=== PATIENT | female | born 1955 | race Caucasian/White ===

== ENCOUNTER 2016-02-17 23:08 | Emergency (ER) | payer BC, MEDICARE ==
[2006-11-29 01:49] VITALS: BP 163/71
[~2016-02-17] VITALS: Ht 162.6 cm; Wt 118.2 kg
[~2016-02-17 23:08] MED LIST: ABILIFY30 MG PO; ALDACTONE 25MG25 M1 PO; ALDACTONE 25MG25 MG PO; AMITRIPTYLINE H10 M1 PO; AMITRIPTYLINE H75 M1 PO; AMOXICILLIN 50500 MG PO; AMOXICILLIN 8751 TAB PO; AMOXICILLIN875 MG PO; ANTIVERT; ANTIVERT 25MG25 MG PO; ASPIRIN 81M81 MG/TA2 PO; ATARAX 10MG10 MG/TAB PO; ATARAX 25MG25 MG/TAB PO; ATARAX50 MG PO; AXERT; BELSOMRA20 MG PO; BENADRYL25 M2 PO; BIRTH CONTROL; BUSPAR DIVIDOSE15 MG PO; CALAN SR240 MG PO; CARVEDILOL; CEPHALEXIN250 M1 PO; CEPHALEXIN500 M1 PO; CIPRO 500MG TA500 MG PO; CLEOCIN HC150 MG/CAP; CLEOCIN HCL300 MG PO; CLIMARA0.05 MG/24 TD; COGENTIN .0.5 MG/TAB PO; COREG 25MG25 MG/TAB PO; CYMBALTA; CYMBALTA30 MG PO; CYMBALTA60 M1 PO; DAZIDOX10 MG PO; DEPAKOTE 125MG125 M1 PO; DESYREL 100MG100 MG PO; DICLOFENAC; DIFLUCAN; DIFLUCAN150 MG PO; DILAUDID 2MG TAB2 MG; DRAMAMINE50 M1 PO; ELAVIL50 MG PO; ESTRACE; ESTRACE 1MG1 MG/TAB PO; ESTRACE0.1 MG/GM VG; FENTANYL 100MCG TOP; FENTANYL 25 MCG TOP; FENTANYL 50MCG TD; FENTANYL 50MCG TOP; FETZIMA20 PO; FLEXERIL; FLEXERIL10 MG PO; FLUOXETINE; FROVA PO; FROVA2.5 MG PO; FROVATRIPTAN; GEODON 40MG40 MG PO; GRALISE600 MG PO; GYNE-LOTRIMIN1% VG; HCTZ 25MG TAB25 MG PO; HCTZ 25MG25 MG PO; HORIZANT300 MG PO; HYDROXYZINE HYD25 MG PO; IMITREX100 MG PO; ISOPTIN PO; KETAMINE CREAM TOP; KLOR-CON 1010 MEQ PO; LAMICTAL; LAMICTAL 100MG100 MG PO; LAMICTAL 25MG T25 MG PO; LAMISIL1% TOP; LAMOTRIGINE5 MG PO; LASIX; LASIX 20MG TABL20 MG PO; LASIX 40MG TABL40 MG PO; LATUDA20 MG PO; LATUDA40 MG PO; LATUDA60 MG PO; LEVAQUIN 5500 MG/TA1 PO; LEXAPRO 10MG10 MG PO; LEXAPRO20 MG; LIORESAL 1010 MG/TAB PO; LISINOPRIL2.5 MG PO; LITHIUM 30300 MG/CAP PO; LITHOBID 3300 MG/TAB PO; LORTAB 7.5/5001 TAB PO; LUNESTA2 MG PO; MACROBID 1100 MG/CAP; MACROBID 1100 MG/CAP PO; MACROBID100 MG PO; METHYLPHENIDATE; MICRO-K 10 EXT10 MEQ PO; MICRO-K10 MEQ PO; MYCOSTATIN100000 U/2 TP; NAPROXEN 3375 MG/TAB PO; NASACORT AQ N16.5 GM NS; NEURONTIN100 MG/CAP; NORCO 325 MG-51 TAB; NORCO 325 MG-51 TAB PO; NUVIGIL150 MG PO; NUVIGIL50 MG PO; OXYCONTIN40 MG PO; PHENERGAN 25 TA25 MG PO; PHENERGAN25 MG RC; PREDNISONE20 MG PO; PREMARIN 0.60.625 M1 PO; PRILOTC PO; PROAIR HFA0.09 MG/AC IH; PROZAC 20MG20 MG PO; PYRIDIUM 100MG100 MG PO; REFRESH DRY EYE15 ML OU; RESTORIL15 MG PO; RISPERDAL2 MG PO; RITALIN 20M20 MG/TAB PO; ROXICODONE15 MG PO; SEROQUEL XR150 MG PO; SINEQUAN 1010 MG/CAP PO; SKELAXIN 4400 MG/TAB PO; SKELAXIN 800MG800 MG; SKELAXIN 800MG800 MG PO; TEMAZEPAM; TESSALON PERLE200 MG PO; TRAMADOL; TREXAMET; ULTRAM 50MG TAB50 MG DT; ULTRAM 50MG TAB50 MG PO; ULTRAM50 MG PO; UNABLE; VANCOMYCIN 11 G/VIA1 IV; VANCOMYCIN 11 G/VIAL IV; VERAPAMIL; VESICARE 5MG5 MG PO; VICODIN 5/5001 UDTAB PO; VIVARIN200 MG PO; VYVANSE; VYVANSE70 MG PO; WELLBUTRIN XL150 MG PO; ZESTRIL 5MG5 MG PO; ZESTRIL10 MG PO; ZIPRASIDONE; ZITHROMAX 250M250 MG PO; ZITHROMAX TRI-500 MG PO; ZITHROMAX Z PA250 MG PO; ZOFRAN 4MG T4 MG/TAB PO; ZOLOFT 100MG100 MG PO; ZOLPIDEM5 MG PO; ZOVIRAX 200MG200 MG; ZOVIRAX51; ZOVIRAX51 TP; ZYRTEC 10MG10 MG PO; [UNRECOGNIZED DRUG - OTHER]; [UNRECOGNIZED DRUG - OTHER] PO; vyvanse
[2016-02-17 23:29] VITALS: TEMP 98.3
[2016-02-18 00:48] VITALS: BP 152/92; PULSE 71
== END 2016-02-18 01:05 | disposition home or self-care (01) ==
LOC: COL.ER 23:08
DX: G43.909 Migraine, unspecified, not intractable, without status migrainosus (principal)
CPT/HCPCS: J1100; J1200; J1885; J2405; J2550; J7030

== ENCOUNTER → 2016-03-02 | Outpatient (CLI) | payer BC, MEDICARE ==
[~2016-03-02] MED LIST changes: +RESTORIL 1515 MG/CAP PO
== END ==
LOC: BHSO 10:35
DX: F31.81 Bipolar II disorder (principal)

== ENCOUNTER 2016-03-03 20:13 | Emergency (ER) | payer BC, MEDICARE ==
[2006-11-29 01:49] VITALS: BP 163/71
[~2016-03-03] VITALS: Ht 162.6 cm; Wt 109.1 kg
[~2016-03-03 20:13] MED LIST changes: -RESTORIL 1515 MG/CAP PO
[2016-03-03 20:17] VITALS: BP 143/75; TEMP 98.2
[2016-03-03 22:52] VITALS: PULSE 70
== END 2016-03-03 22:54 | disposition home or self-care (01) ==
LOC: COL.ER 20:13
DX: R51 Headache (principal); I10 Essential (primary) hypertension; Z86.73 Personal history of transient ischemic attack (TIA), and cerebral infarction without residual deficits
CPT/HCPCS: J1110; J1200; J1885; J2405; J7030

== ENCOUNTER 2016-03-08 19:44 | Emergency (ER) | payer BC, MEDICARE ==
[2006-11-29 01:49] VITALS: BP 163/71
[~2016-03-08] VITALS: Ht 162.6 cm; Wt 100.0 kg
[2016-03-08 20:02] VITALS: TEMP 98.4
[2016-03-08 22:52] VITALS: BP 143/84; PULSE 73
== END 2016-03-08 22:58 | disposition home or self-care (01) ==
LOC: COL.ER 19:44
DX: G43.909 Migraine, unspecified, not intractable, without status migrainosus (principal)
CPT/HCPCS: J1100; J1885; J2060; J2405; J2550

== ENCOUNTER 2016-03-16 06:56 | Emergency (ER) | payer BC, MEDICARE ==
[2006-11-29 01:49] VITALS: BP 163/71
[~2016-03-16] VITALS: Ht 162.6 cm; Wt 118.2 kg
[2016-03-16 08:19] VITALS: BP 114/69; PULSE 68; TEMP 97.4
== END 2016-03-16 08:17 | disposition home or self-care (01) ==
LOC: COL.ER 06:56
DX: G43.909 Migraine, unspecified, not intractable, without status migrainosus (principal); I10 Essential (primary) hypertension
CPT/HCPCS: J1170; J1200

== ENCOUNTER 2016-04-16 05:26 | Emergency (ER) | payer BC, MEDICARE ==
[2006-11-29 01:49] VITALS: BP 163/71
[~2016-04-16] VITALS: Ht 162.6 cm; Wt 109.1 kg
[2016-04-16 05:29] VITALS: BP 122/54; TEMP 98.5
[2016-04-16] MEDS ORDERED: ZITHROMAX 250M250 MG PO (05:58)
[2016-04-16 06:20] VITALS: PULSE 75
== END 2016-04-16 06:21 | disposition home or self-care (01) ==
LOC: COL.ER 05:26
DX: G43.909 Migraine, unspecified, not intractable, without status migrainosus (principal); J32.9 Chronic sinusitis, unspecified; I10 Essential (primary) hypertension; J44.9 Chronic obstructive pulmonary disease, unspecified; J45.909 Unspecified asthma, uncomplicated
CPT/HCPCS: J1170; J1200; J2405

== ENCOUNTER → 2016-04-27 | Outpatient (CLI) | payer BC, MEDICARE ==
[~2016-04-27] MED LIST changes: +RESTORIL 1515 MG/CAP PO
== END ==
LOC: BHSO 14:36
DX: F31.81 Bipolar II disorder (principal)

== ENCOUNTER 2016-05-06 21:32 | Emergency (ER) | payer BC, MEDICARE ==
[2006-11-29 01:49] VITALS: BP 163/71
[~2016-05-06] VITALS: Ht 162.6 cm; Wt 122.7 kg
[~2016-05-06 21:32] MED LIST changes: -RESTORIL 1515 MG/CAP PO
[2016-05-06 21:41] VITALS: TEMP 98.1
[2016-05-06] MEDS ORDERED: RESTORIL 1515 MG/CAP PO (21:45)
[2016-05-06 23:35] VITALS: BP 184/95; PULSE 73
== END 2016-05-06 23:45 | disposition home or self-care (01) ==
LOC: COL.ER 21:32
DX: R51 Headache (principal); I10 Essential (primary) hypertension; Z86.73 Personal history of transient ischemic attack (TIA), and cerebral infarction without residual deficits
CPT/HCPCS: J1100; J1110; J1200; J1885; J2405; J7030

== ENCOUNTER 2016-05-19 20:56 | Emergency (ER) | payer BC, MEDICARE ==
[2006-11-29 01:49] VITALS: BP 163/71
[~2016-05-19] VITALS: Ht 162.6 cm; Wt 118.2 kg
[~2016-05-19 20:56] MED LIST changes: +RESTORIL 1515 MG/CAP PO
[2016-05-19 20:59] VITALS: TEMP 97.8
[2016-05-19 21:48] VITALS: BP 151/77; PULSE 88
== END 2016-05-19 21:51 | disposition home or self-care (01) ==
LOC: COL.ER 20:56
DX: G43.909 Migraine, unspecified, not intractable, without status migrainosus (principal); I10 Essential (primary) hypertension; Z86.73 Personal history of transient ischemic attack (TIA), and cerebral infarction without residual deficits
CPT/HCPCS: J1170; J1200; J2405

== ENCOUNTER 2016-06-05 18:06 | Emergency (ER) | payer BC, MEDICARE ==
[2006-11-29 01:49] VITALS: BP 163/71
[~2016-06-05] VITALS: Ht 162.6 cm; Wt 118.2 kg
[2016-06-05 18:31] VITALS: TEMP 98.8
[2016-06-05 19:40] VITALS: BP 171/89; PULSE 71
== END 2016-06-05 19:40 | disposition home or self-care (01) ==
LOC: COL.ER 18:06
DX: G43.909 Migraine, unspecified, not intractable, without status migrainosus (principal)
CPT/HCPCS: J1170; J1200; J2405

== ENCOUNTER → 2016-06-29 | Outpatient (CLI) | payer BC, MEDICARE | LOC: BHSO 14:08 | DX: F31.81 Bipolar II disorder (principal) ==

== ENCOUNTER 2016-07-11 01:09 | Emergency (ER) | payer BC, MEDICARE ==
[2006-11-29 01:49] VITALS: BP 163/71
[~2016-07-11] VITALS: Ht 162.6 cm; Wt 122.7 kg
[2016-07-11 01:17] VITALS: TEMP 98
[2016-07-11 02:59] VITALS: BP 145/89; PULSE 94
== END 2016-07-11 03:01 | disposition home or self-care (01) ==
LOC: COL.ER 01:09
DX: G43.909 Migraine, unspecified, not intractable, without status migrainosus (principal); K21.9 Gastro-esophageal reflux disease without esophagitis; J45.909 Unspecified asthma, uncomplicated; I10 Essential (primary) hypertension; F31.9 Bipolar disorder, unspecified; Z90.49 Acquired absence of other specified parts of digestive tract; Z90.710 Acquired absence of both cervix and uterus; Z98.51 Tubal ligation status; Z98.890 Other specified postprocedural states; Z85.41 Personal history of malignant neoplasm of cervix uteri
CPT/HCPCS: J1170; J1200; J2405

== ENCOUNTER 2016-08-11 12:47 | Emergency (ER) | payer BC, MEDICARE ==
[2006-11-29 01:49] VITALS: BP 163/71
[~2016-08-11] VITALS: Ht 162.6 cm; Wt 118.2 kg
[2016-08-11 12:50] VITALS: BP 131/87; PULSE 84; TEMP 99
== END 2016-08-11 14:05 | disposition home or self-care (01) ==
LOC: COL.ER 12:47
DX: G43.909 Migraine, unspecified, not intractable, without status migrainosus (principal); I11.0 Hypertensive heart disease with heart failure; I50.9 Heart failure, unspecified; F32.9 Major depressive disorder, single episode, unspecified; J45.909 Unspecified asthma, uncomplicated; F31.9 Bipolar disorder, unspecified; K21.9 Gastro-esophageal reflux disease without esophagitis; M19.90 Unspecified osteoarthritis, unspecified site; Z87.19 Personal history of other diseases of the digestive system; Z87.39 Personal history of other diseases of the musculoskeletal system and connective tissue; Z85.41 Personal history of malignant neoplasm of cervix uteri; Z86.73 Personal history of transient ischemic attack (TIA), and cerebral infarction without residual deficits; Z98.51 Tubal ligation status; Z90.710 Acquired absence of both cervix and uterus; Z90.49 Acquired absence of other specified parts of digestive tract; Z98.890 Other specified postprocedural states
CPT/HCPCS: J1170; J1200; J2405

== ENCOUNTER 2016-09-22 19:15 | Emergency (ER) | payer BC, MEDICARE ==
[2006-11-29 01:49] VITALS: BP 163/71
[~2016-09-22] VITALS: Ht 162.6 cm; Wt 119.1 kg
[2016-09-22 19:21] VITALS: BP 179/104; PULSE 102; TEMP 99.2
== END 2016-09-22 21:56 | disposition home or self-care (01) ==
LOC: COL.ER 19:15
DX: G43.909 Migraine, unspecified, not intractable, without status migrainosus (principal); E66.01 Morbid (severe) obesity due to excess calories; Z68.42 Body mass index [BMI] 45.0-49.9, adult
CPT/HCPCS: J1170; J1200; J2405

== ENCOUNTER → 2016-09-22 | Outpatient (CLI) | payer BC, MEDICARE | LOC: BHSO 15:08 | DX: F31.81 Bipolar II disorder (principal) ==

== ENCOUNTER 2016-10-23 20:37 | Emergency (ER) | payer BC, MEDICARE ==
[2006-11-29 01:49] VITALS: BP 163/71
[~2016-10-23] VITALS: Ht 162.6 cm; Wt 116.8 kg
[2016-10-23 20:39] VITALS: BP 195/70; TEMP 99.6
[2016-10-23] MEDS ORDERED: DESYREL 100MG100 MG PO (22:38)
[2016-10-23 23:02] VITALS: PULSE 84
== END 2016-10-23 23:03 | disposition home or self-care (01) ==
LOC: COL.ER 20:37
DX: G43.909 Migraine, unspecified, not intractable, without status migrainosus (principal); I11.0 Hypertensive heart disease with heart failure; I50.9 Heart failure, unspecified; Z86.73 Personal history of transient ischemic attack (TIA), and cerebral infarction without residual deficits; F31.9 Bipolar disorder, unspecified; J45.909 Unspecified asthma, uncomplicated; K31.84 Gastroparesis; G89.29 Other chronic pain; M54.9 Dorsalgia, unspecified
CPT/HCPCS: J1170; J1200; J2405

== ENCOUNTER 2016-11-22 18:06 | Emergency (ER) | payer BC, MEDICARE ==
[2006-11-29 01:49] VITALS: BP 163/71
[~2016-11-22] VITALS: Ht 162.6 cm; Wt 111.8 kg
[2016-11-22 18:14] VITALS: BP 171/79; TEMP 98
[2016-11-22 19:18] VITALS: PULSE 77
== END 2016-11-22 19:20 | disposition home or self-care (01) ==
LOC: COL.ER 18:06
DX: G43.909 Migraine, unspecified, not intractable, without status migrainosus (principal); I10 Essential (primary) hypertension; J45.909 Unspecified asthma, uncomplicated; F31.9 Bipolar disorder, unspecified; M54.9 Dorsalgia, unspecified; G89.29 Other chronic pain; Z86.73 Personal history of transient ischemic attack (TIA), and cerebral infarction without residual deficits
CPT/HCPCS: J1170; J1200; J2405

== ENCOUNTER 2016-12-01 18:08 | Emergency (ER) | payer BC, MEDICARE ==
[2006-11-29 01:49] VITALS: BP 163/71
[~2016-12-01] VITALS: Ht 162.6 cm; Wt 106.8 kg
[2016-12-01 18:10] VITALS: TEMP 99.1
[2016-12-01 19:13] VITALS: BP 175/106; PULSE 98
== END 2016-12-01 19:26 | disposition home or self-care (01) ==
LOC: COL.ER 18:08
DX: G43.909 Migraine, unspecified, not intractable, without status migrainosus (principal)
CPT/HCPCS: J1200; J1630; J1885

== ENCOUNTER 2016-12-03 19:08 | Emergency (ER) | payer BC, MEDICARE ==
[2006-11-29 01:49] VITALS: BP 163/71
[~2016-12-03] VITALS: Ht 162.6 cm; Wt 109.1 kg
[2016-12-03 19:11] VITALS: BP 139/90; PULSE 102; TEMP 98
== END 2016-12-03 21:35 | disposition home or self-care (01) ==
LOC: COL.ER 19:08
DX: K59.00 Constipation, unspecified (principal); G89.29 Other chronic pain; Z90.49 Acquired absence of other specified parts of digestive tract

== ENCOUNTER 2016-12-05 16:48 | Inpatient (IN) | payer BC, MEDICARE ==
[~2016-12-05] VITALS: Ht 162.6 cm; Wt 112.4 kg
[2016-12-05 17:58] LABS: BASO # 0.1 (0.0-0.2); BASO % 0.6 % (0.0-2.0); EOS # 0.2 (0.0-0.7); EOS % 2.5 % (0-4.0); GRAN # 6.8 (1.4-6.5); GRAN % 75.3 % (42.2-75.2); HEMATOCRIT 46.7 % (37.0-47.0); HEMOGLOBIN 15.9 g/dl (12.5-16.0); LYMPH # 1.3 (1.2-3.4); LYMPH % 14.8 % (20.0-51.0); MEAN CELL VOLUME 84 fl (80.0-100.0); MEAN CORPUSCULAR HEMOGLOBIN 29 pg (27.0-31.0); MEAN CORPUSCULAR HGB CONC 34 g/dl (33.0-37.0); MEAN PLATELET VOLUME 8.8 fl (7.4-10.4); MONO # 0.6 (0.1-0.6); MONO % 6.6 % (1.7-9.3); PLATELET COUNT 301 K/mm3 (130-400); RED BLOOD COUNT 5.56 M/mm3 (4.10-5.30); WHITE BLOOD COUNT 9.1 K/mm3 (4.8-10.8)
[2016-12-05 18:15] LABS: ADJUSTED CALCIUM 10.3 mg/dL (8.4-10.2); ALANINE AMINOTRANSFERASE 29 U/L (9-52); ALBUMIN 4.5 gm/dL (3.5-5.0); ALKALINE PHOSPHATASE 119 U/L (50-136); BILIRUBIN,TOTAL 1.2 mg/dL (0.0-1.0); BLOOD UREA NITROGEN 10 mg/dL (7-17); CALCIUM 10.7 mg/dL (8.4-10.2); CARBON DIOXIDE 23 mmol/L (22-30); CREATININE, serum 0.66 mg/dL (0.52-1.25); GLUCOSE 95 mg/dL (74-106); LIPASE 28 U/L (23-300); POTASSIUM 3.2 mmol/L (3.4-5.0); SODIUM 138 mmol/L (137-145); TOTAL PROTEIN 7.8 gm/dL (6.4-8.2)
[2016-12-05 18:17] LABS: CHLORIDE 101 mmol/L (98-107)
[2016-12-05 19:08] LABS: COLLECTION METHOD CLEAN CATCH
[2016-12-05 19:23] LABS: MUCOUS Present /lpf; PH 7 (5-8); URINE APPEARANCE Clear; URINE BACTERIA Rare /hpf; URINE BILIRUBIN Negative (NEGATIVE); URINE BLOOD 1+ (NEGATIVE); URINE GLUCOSE Negative (NEGATIVE); URINE KETONE 2+ (NEGATIVE); URINE LEUKOCYTE ESTERASE Negative (NEGATIVE); URINE PROTEIN(semi-quant) Negative (NEGATIVE); URINE RBC 0-2 /hpf; URINE WBC 0-2 /hpf
[2016-12-05 19:24] LABS: URINE COLOR Yellow
[2016-12-05 20:46] LABS: MAGNESIUM 2.5 mg/dL (1.6-2.3)
[2016-12-05] MEDS ORDERED: EFFEXOR-XR150 MG PO (21:02)
[2016-12-05] MEDS ORDERED: COGENTIN 1MG1 MG/TAB PO (21:07)
[2016-12-05] MEDS ORDERED: AMITIZA24 MCG PO (21:08)
[2016-12-05] MEDS ORDERED: LAMICTAL200 MG PO (21:09)
[2016-12-05] MEDS ORDERED: ATARAX 10MG10 MG/TAB PO (21:10)
[2016-12-05] MEDS ORDERED: AXERT6.25 MG PO (21:12)
[2016-12-05] MEDS ORDERED: DETROL LA 2 MG2 MG PO (21:14)
[2016-12-05] MEDS ORDERED: COGENTIN .0.5 MG/TAB PO (21:22)
[2016-12-05 22:07] VITALS: BP 154/79; PULSE 94; TEMP 98.1
[2016-12-05 22:13] LABS: B-TYPE NATRIURETIC PEPTIDE 124 pg/mL (0-125)
[2016-12-06] VITALS (7 sets, daily range): BP systolic 115–155; BP diastolic 54–78; PULSE 64–83; TEMP 97.3–98.7
[2016-12-06 05:21] LABS: MUCOUS Present /lpf; PH 6 (5-8); URINE APPEARANCE Clear; URINE BACTERIA None Seen /hpf; URINE BILIRUBIN Negative (NEGATIVE); URINE BLOOD Negative (NEGATIVE); URINE COLOR Amber; URINE GLUCOSE Negative (NEGATIVE); URINE KETONE 2+ (NEGATIVE); URINE LEUKOCYTE ESTERASE Negative (NEGATIVE); URINE PROTEIN(semi-quant) Negative (NEGATIVE); URINE RBC 0-2 /hpf; URINE UROBILINOGEN >=4.0 mg/dL (NEGATIVE); URINE WBC 0-2 /hpf
[2016-12-06 07:24] LABS: BASO % 0.8 % (0.0-2.0); EOS # 0.3 (0.0-0.7); EOS % 5.3 % (0-4.0); GRAN # 3.1 (1.4-6.5); GRAN % 59.6 % (42.2-75.2); LYMPH # 1.4 (1.2-3.4); LYMPH % 25.7 % (20.0-51.0); MEAN CELL VOLUME 86 fl (80.0-100.0); MEAN CORPUSCULAR HEMOGLOBIN 28 pg (27.0-31.0); MEAN CORPUSCULAR HGB CONC 33 g/dl (33.0-37.0); MEAN PLATELET VOLUME 9.2 fl (7.4-10.4); MONO # 0.4 (0.1-0.6); MONO % 8.2 % (1.7-9.3); PLATELET COUNT 223 K/mm3 (130-400); WHITE BLOOD COUNT 5.3 K/mm3 (4.8-10.8)
[2016-12-06 07:32] LABS: HEMOGLOBIN 13.9 g/dl (12.5-16.0)
[2016-12-06 07:40] LABS: CALCIUM 9.4 mg/dL (8.4-10.2); CREATININE, serum 0.56 mg/dL (0.52-1.25); POTASSIUM 3.3 mmol/L (3.4-5.0)
[2016-12-06 07:47] LABS: COLLECTION METHOD CLEAN CATCH
[2016-12-07] VITALS (8 sets, daily range): BP systolic 120–144; BP diastolic 47–70; PULSE 65–77; TEMP 97.5–98.5
[2016-12-08 04:40] VITALS: BP 132/53; PULSE 68; TEMP 97.4
[2016-12-08 06:47] LABS: BASO # 0.1 (0.0-0.2); BASO % 1.2 % (0.0-2.0); EOS # 0.2 (0.0-0.7); EOS % 5.4 % (0-4.0); GRAN % 48.5 % (42.2-75.2); HEMATOCRIT 39.6 % (37.0-47.0); HEMOGLOBIN 12.9 g/dl (12.5-16.0); LYMPH # 1.5 (1.2-3.4); LYMPH % 36.1 % (20.0-51.0); MEAN CELL VOLUME 88 fl (80.0-100.0); MEAN CORPUSCULAR HEMOGLOBIN 29 pg (27.0-31.0); MEAN CORPUSCULAR HGB CONC 33 g/dl (33.0-37.0); MEAN PLATELET VOLUME 9.1 fl (7.4-10.4); MONO # 0.3 (0.1-0.6); MONO % 8.3 % (1.7-9.3); PLATELET COUNT 217 K/mm3 (130-400); RED BLOOD COUNT 4.51 M/mm3 (4.10-5.30); WHITE BLOOD COUNT 4.1 K/mm3 (4.8-10.8)
[2016-12-08 07:06] LABS: CALCIUM 8.7 mg/dL (8.4-10.2); CREATININE, serum 0.55 mg/dL (0.52-1.25); POTASSIUM 3.6 mmol/L (3.4-5.0)
[2016-12-08 08:05] VITALS: BP 144/65; PULSE 75; TEMP 97.2
[2016-12-08] MEDS ORDERED: FLAGYL500 MG PO (08:53)
[2016-12-08] MEDS ORDERED: CIPRO 500MG TA500 MG PO (08:54)
== END 2016-12-08 16:15 | disposition home or self-care (01) | DRG 392 ==
LOC: COL.ER 16:48 → MEDICAL 20:20
PROVIDERS: Emergency Medicine; Internal Medicine Gastroenterology; Nurse Practitioner Family; Physician Assistant
PROC: 0DJD8ZZ Inspection of Lower Intestinal Tract, Via Natural or Artificial Opening Endoscopic (ICD-10-PCS; principal; 2016-12-07 15:30)
DX: K57.32 Diverticulitis of large intestine without perforation or abscess without bleeding (principal); N39.0 Urinary tract infection, site not specified; I10 Essential (primary) hypertension; E87.6 Hypokalemia; E83.52 Hypercalcemia; F31.9 Bipolar disorder, unspecified; J45.909 Unspecified asthma, uncomplicated; G89.29 Other chronic pain; Z85.41 Personal history of malignant neoplasm of cervix uteri; Z86.73 Personal history of transient ischemic attack (TIA), and cerebral infarction without residual deficits
CPT/HCPCS: 99223-AI; 99233-AI; 99239; J0360; J0500; J0744; J1885; J2270; J2405; J3480; J7030; Q9967

== ENCOUNTER 2016-12-25 17:13 | Emergency (ER) | payer BC, MEDICARE ==
[2006-11-29 01:49] VITALS: BP 163/71
[~2016-12-25] VITALS: Ht 162.6 cm; Wt 112.3 kg
[~2016-12-25 17:13] MED LIST changes: +AMITIZA24 MCG PO; +AXERT6.25 MG PO; +COGENTIN 1MG1 MG/TAB PO; +DETROL LA 2 MG2 MG PO; +EFFEXOR-XR150 MG PO; +FLAGYL500 MG PO; +LAMICTAL200 MG PO
[2016-12-25 17:16] VITALS: TEMP 98.1
[2016-12-25 17:48] LABS: COLLECTION METHOD CLEAN CATCH
[2016-12-25 17:55] LABS: MUCOUS Present /lpf; PH 6 (5-8); URINE APPEARANCE Clear; URINE BACTERIA None Seen /hpf; URINE BILIRUBIN Negative (NEGATIVE); URINE BLOOD Negative (NEGATIVE); URINE COLOR Amber; URINE GLUCOSE Negative (NEGATIVE); URINE KETONE Negative (NEGATIVE); URINE LEUKOCYTE ESTERASE Negative (NEGATIVE); URINE PROTEIN(semi-quant) Negative (NEGATIVE); URINE UROBILINOGEN >=4.0 mg/dL (NEGATIVE)
[2016-12-25 18:45] VITALS: BP 142/79; PULSE 79
== END 2016-12-25 18:45 | disposition home or self-care (01) ==
LOC: COL.ER 17:13
PROVIDERS: Nurse Practitioner
DX: G43.909 Migraine, unspecified, not intractable, without status migrainosus (principal); I11.0 Hypertensive heart disease with heart failure; I50.9 Heart failure, unspecified; J45.909 Unspecified asthma, uncomplicated; F31.9 Bipolar disorder, unspecified; K31.84 Gastroparesis; Z86.73 Personal history of transient ischemic attack (TIA), and cerebral infarction without residual deficits
CPT/HCPCS: J1170; J1200; J2405

== ENCOUNTER 2017-01-25 19:00 | Emergency (ER) | payer BC, MEDICARE ==
[2006-11-29 01:49] VITALS: BP 163/71
[~2017-01-25] VITALS: Ht 162.6 cm; Wt 109.1 kg
[2017-01-25 19:10] VITALS: BP 194/88; PULSE 91; TEMP 98.5
== END 2017-01-25 20:08 | disposition home or self-care (01) ==
LOC: COL.ER 19:00
DX: G43.909 Migraine, unspecified, not intractable, without status migrainosus (principal); I11.0 Hypertensive heart disease with heart failure; I50.9 Heart failure, unspecified; J45.909 Unspecified asthma, uncomplicated; F31.9 Bipolar disorder, unspecified; G89.29 Other chronic pain; M54.9 Dorsalgia, unspecified; Z86.73 Personal history of transient ischemic attack (TIA), and cerebral infarction without residual deficits
CPT/HCPCS: J1170; J1200; J2405

== ENCOUNTER 2017-02-25 19:36 | Emergency (ER) | payer BC, MEDICARE ==
[2006-11-29 01:49] VITALS: BP 163/71
[~2017-02-25] VITALS: Wt 109.1 kg
[2017-02-25 19:43] VITALS: TEMP 98.8
[2017-02-25 20:44] VITALS: BP 170/77; PULSE 66
== END 2017-02-25 20:50 | disposition home or self-care (01) ==
LOC: COL.ER 19:36
DX: G43.909 Migraine, unspecified, not intractable, without status migrainosus (principal); I10 Essential (primary) hypertension
CPT/HCPCS: J1170; J1200; J2405

== ENCOUNTER 2017-03-27 13:58 | Emergency (ER) | payer BC, MEDICARE ==
[2006-11-29 01:49] VITALS: BP 163/71
[~2017-03-27] VITALS: Ht 162.6 cm; Wt 101.4 kg
[2017-03-27 14:34] VITALS: BP 191/103; TEMP 98.7
[2017-03-27] MEDS ORDERED: URIBEL1 CAP PO (15:06)
[2017-03-27] MEDS ORDERED: NORCO 325 MG-7.1 TAB PO (15:07)
[2017-03-27 15:32] VITALS: PULSE 93
== END 2017-03-27 15:33 | disposition home or self-care (01) ==
LOC: COL.ER 13:58
DX: G43.909 Migraine, unspecified, not intractable, without status migrainosus (principal); I10 Essential (primary) hypertension; J45.909 Unspecified asthma, uncomplicated; F31.9 Bipolar disorder, unspecified; Z86.73 Personal history of transient ischemic attack (TIA), and cerebral infarction without residual deficits; Z90.49 Acquired absence of other specified parts of digestive tract; Z90.710 Acquired absence of both cervix and uterus; Z98.51 Tubal ligation status; Z90.89 Acquired absence of other organs
CPT/HCPCS: J1170; J1200; J2405

== ENCOUNTER 2017-04-27 19:26 | Emergency (ER) | payer BC, MEDICARE ==
[2006-11-29 01:49] VITALS: BP 163/71
[~2017-04-27] VITALS: Ht 162.6 cm; Wt 111.4 kg
[~2017-04-27 19:26] MED LIST changes: +NORCO 325 MG-7.1 TAB PO; +URIBEL1 CAP PO
[2017-04-27 19:35] VITALS: TEMP 98
[2017-04-27 21:09] VITALS: BP 172/74; PULSE 72
== END 2017-04-27 21:09 | disposition home or self-care (01) ==
LOC: COL.ER 19:26
DX: G43.909 Migraine, unspecified, not intractable, without status migrainosus (principal); I11.0 Hypertensive heart disease with heart failure; I50.9 Heart failure, unspecified; J45.909 Unspecified asthma, uncomplicated; F31.9 Bipolar disorder, unspecified; G89.29 Other chronic pain
CPT/HCPCS: J1170; J1200; J2405

== ENCOUNTER 2017-05-04 14:09 | Emergency (ER) | payer BC, MEDICARE ==
[2006-11-29 01:49] VITALS: BP 163/71
[~2017-05-04] VITALS: Ht 162.6 cm; Wt 112.3 kg
[2017-05-04 14:11] VITALS: TEMP 98.6
[2017-05-04 15:37] LABS: BASO # 0.1 (0.0-0.2); EOS # 0.3 (0.0-0.7); EOS % 5.4 % (0-4.0); GRAN # 4.1 (1.4-6.5); GRAN % 66.5 % (42.2-75.2); HEMATOCRIT 42.7 % (37.0-47.0); HEMOGLOBIN 14.3 g/dl (12.5-16.0); LYMPH # 1.3 (1.2-3.4); LYMPH % 21.4 % (20.0-51.0); MEAN CELL VOLUME 86 fl (80.0-100.0); MEAN CORPUSCULAR HEMOGLOBIN 29 pg (27.0-31.0); MEAN CORPUSCULAR HGB CONC 34 g/dl (33.0-37.0); MEAN PLATELET VOLUME 8.8 fl (7.4-10.4); MONO # 0.3 (0.1-0.6); MONO % 5.5 % (1.7-9.3); PLATELET COUNT 247 K/mm3 (130-400); RED BLOOD COUNT 4.97 M/mm3 (4.10-5.30); REDCELL DISTRIBUTION WIDTH-CV 12.7 % (11.5-14.5)
[2017-05-04 15:39] LABS: INR 1.1 (0.8-3.0); PROTHROMBIN TIME 12.4 SECONDS (9.7-12.8)
[2017-05-04 15:41] LABS: PARTIAL THROMBOPLASTIN TIME 35.4 SECONDS (26.0-37.0)
[2017-05-04 15:45] LABS: ALANINE AMINOTRANSFERASE 19 U/L (9-52); ALBUMIN 4.4 gm/dL (3.5-5.0); ALKALINE PHOSPHATASE 100 U/L (50-136); ANION GAP 14 mmol/L (7-16); AST,SGOT 20 U/L (15-37); BILIRUBIN,TOTAL 0.8 mg/dL (0.0-1.0); BLOOD UREA NITROGEN 20 mg/dL (7-17); CALCIUM 10.3 mg/dL (8.4-10.2); CARBON DIOXIDE 23 mmol/L (22-30); CHLORIDE 103 mmol/L (98-107); CREATININE, serum 0.66 mg/dL (0.52-1.25); GLUCOSE 82 mg/dL (74-106); POTASSIUM 4.1 mmol/L (3.4-5.0); SODIUM 139 mmol/L (137-145); TOTAL PROTEIN 7.8 gm/dL (6.4-8.2)
[2017-05-04 15:57] LABS: TROPONIN-I < 0.012 ng/mL (0.000-0.034)
[2017-05-04 17:13] VITALS: BP 152/75; PULSE 64
== END 2017-05-04 17:13 | disposition home or self-care (01) ==
LOC: COL.ER 14:09
PROVIDERS: Family Medicine
DX: I10 Essential (primary) hypertension (principal); G43.909 Migraine, unspecified, not intractable, without status migrainosus; F41.9 Anxiety disorder, unspecified; F32.9 Major depressive disorder, single episode, unspecified
CPT/HCPCS: J1200; J1885; J2270; J2405

== ENCOUNTER 2017-05-29 14:53 | Emergency (ER) | payer BC, MEDICARE ==
[2006-11-29 01:49] VITALS: BP 163/71
[~2017-05-29] VITALS: Ht 162.6 cm; Wt 98.6 kg
[2017-05-29 15:22] VITALS: BP 187/90; TEMP 98.8
[2017-05-29 16:31] VITALS: PULSE 73
== END 2017-05-29 16:32 | disposition home or self-care (01) ==
LOC: COL.ER 14:53
DX: G43.909 Migraine, unspecified, not intractable, without status migrainosus (principal); J45.909 Unspecified asthma, uncomplicated; F31.9 Bipolar disorder, unspecified; Z90.710 Acquired absence of both cervix and uterus; Z98.890 Other specified postprocedural states
CPT/HCPCS: J1170; J1200; J2405

== ENCOUNTER 2017-06-27 06:24 | Emergency (ER) | payer BC, MEDICARE ==
[2006-11-29 01:49] VITALS: BP 163/71
[~2017-06-27] VITALS: Ht 162.6 cm; Wt 98.6 kg
[2017-06-27 08:02] VITALS: BP 171/79; PULSE 59; TEMP 97.7
[2017-06-27 08:10] LABS: COLLECTION METHOD CLEAN CATCH
[2017-06-27 08:18] LABS: PH 8 (5-8); SQUAMOUS EPITHELIAL 0-2 /hpf; URINE APPEARANCE Clear; URINE BACTERIA None Seen /hpf; URINE BILIRUBIN Negative (NEGATIVE); URINE BLOOD Negative (NEGATIVE); URINE COLOR Amber; URINE GLUCOSE Negative (NEGATIVE); URINE KETONE Negative (NEGATIVE); URINE LEUKOCYTE ESTERASE Negative (NEGATIVE); URINE NITRATE Positive (NEGATIVE); URINE PROTEIN(semi-quant) Negative (NEGATIVE); URINE RBC 0-2 /hpf; URINE UROBILINOGEN Negative (NEGATIVE)
== END 2017-06-27 08:29 | disposition home or self-care (01) ==
LOC: COL.ER 06:24
PROVIDERS: Nurse Practitioner
DX: G43.909 Migraine, unspecified, not intractable, without status migrainosus (principal); I11.0 Hypertensive heart disease with heart failure; I50.9 Heart failure, unspecified; J45.909 Unspecified asthma, uncomplicated
CPT/HCPCS: J1170; J1200; J2405

== ENCOUNTER 2017-07-30 21:34 | Emergency (ER) | payer BC, MEDICARE ==
[2006-11-29 01:49] VITALS: BP 163/71
[~2017-07-30] VITALS: Ht 162.6 cm; Wt 98.6 kg
[2017-07-30 21:46] VITALS: BP 167/98; TEMP 98.7
[2017-07-30] MEDS ORDERED: MACROBID 1100 MG/CAP PO (22:19)
[2017-07-30 23:27] VITALS: PULSE 86
== END 2017-07-30 23:27 | disposition home or self-care (01) ==
LOC: COL.ER 21:34
DX: G43.909 Migraine, unspecified, not intractable, without status migrainosus (principal); I10 Essential (primary) hypertension; J45.909 Unspecified asthma, uncomplicated; F31.9 Bipolar disorder, unspecified; M54.9 Dorsalgia, unspecified; G89.29 Other chronic pain; Z86.73 Personal history of transient ischemic attack (TIA), and cerebral infarction without residual deficits; Z90.49 Acquired absence of other specified parts of digestive tract
CPT/HCPCS: J1170; J1200; J2405

== ENCOUNTER → 2017-08-09 | Outpatient (CLI) | payer BC, MEDICARE | LOC: MHCPAIN 08:35 | DX: G89.29 Other chronic pain (principal); M47.817 Spondylosis without myelopathy or radiculopathy, lumbosacral region; M54.16 Radiculopathy, lumbar region; M53.3 Sacrococcygeal disorders, not elsewhere classified; M96.1 Postlaminectomy syndrome, not elsewhere classified | CPT/HCPCS: G0463 ==

== ENCOUNTER → 2017-08-14 | Outpatient (CLI) | payer BC, MEDICARE | LOC: BHSO 14:41 | DX: F31.81 Bipolar II disorder (principal) | CPT/HCPCS: G0463 ==

== ENCOUNTER 2017-08-29 09:04 | Emergency (ER) | payer BC, MEDICARE ==
[2006-11-29 01:49] VITALS: BP 163/71
[~2017-08-29] VITALS: Ht 162.6 cm; Wt 90.9 kg
[2017-08-29 09:06] VITALS: TEMP 98.9
[2017-08-29 10:45] VITALS: BP 138/86; PULSE 107
== END 2017-08-29 10:51 | disposition home or self-care (01) ==
LOC: COL.ER 09:04
DX: G43.909 Migraine, unspecified, not intractable, without status migrainosus (principal); I10 Essential (primary) hypertension; F31.9 Bipolar disorder, unspecified; Z98.890 Other specified postprocedural states
CPT/HCPCS: J1170; J1200; J2405

== ENCOUNTER → 2017-09-27 | Outpatient (CLI) | payer BC, MEDICARE ==
[~2017-09-27] MED LIST changes: +ABILIFY5 MG PO
== END ==
LOC: MHCPAIN 12:53
DX: G89.29 Other chronic pain (principal); M47.817 Spondylosis without myelopathy or radiculopathy, lumbosacral region; M54.16 Radiculopathy, lumbar region; M53.3 Sacrococcygeal disorders, not elsewhere classified; M96.1 Postlaminectomy syndrome, not elsewhere classified
CPT/HCPCS: G0463

== ENCOUNTER 2017-09-28 00:27 | Emergency (ER) | payer BC, MEDICARE ==
[2006-11-29 01:49] VITALS: BP 163/71
[~2017-09-28] VITALS: Ht 162.6 cm; Wt 90.9 kg
[~2017-09-28 00:27] MED LIST changes: -ABILIFY5 MG PO
[2017-09-28 00:32] VITALS: BP 177/97; TEMP 98.1
[2017-09-28] MEDS ORDERED: ABILIFY5 MG PO (00:51)
[2017-09-28] MEDS ORDERED: ZITHROMAX Z PA250 MG PO (00:52)
[2017-09-28] MEDS ORDERED: PROAIR HFA0.09 MG/AC IH (00:53)
[2017-09-28 01:20] VITALS: PULSE 82
== END 2017-09-28 01:20 | disposition home or self-care (01) ==
LOC: COL.ER 00:27
DX: G43.909 Migraine, unspecified, not intractable, without status migrainosus (principal); I10 Essential (primary) hypertension; J45.909 Unspecified asthma, uncomplicated; F31.9 Bipolar disorder, unspecified
CPT/HCPCS: J1170; J1200; J2405

== ENCOUNTER 2017-10-28 22:36 | Emergency (ER) | payer BC, MEDICARE ==
[~2017-10-28] VITALS: Ht 162.6 cm; Wt 98.6 kg
[~2017-10-28 22:36] MED LIST changes: +ABILIFY5 MG PO
[2017-10-28 22:40] VITALS: BP 138/87; TEMP 99
[2017-10-29 01:17] VITALS: PULSE 92
== END 2017-10-29 01:17 | disposition home or self-care (01) ==
LOC: COL.ER 22:36
DX: G43.909 Migraine, unspecified, not intractable, without status migrainosus (principal); I10 Essential (primary) hypertension; F31.9 Bipolar disorder, unspecified; G89.29 Other chronic pain; J45.909 Unspecified asthma, uncomplicated; Z90.49 Acquired absence of other specified parts of digestive tract; Z98.890 Other specified postprocedural states; Z86.73 Personal history of transient ischemic attack (TIA), and cerebral infarction without residual deficits
CPT/HCPCS: J1170; J1200; J2405

== ENCOUNTER → 2017-11-16 | Outpatient (CLI) | payer BC, MEDICARE | LOC: BHSO 15:01 | DX: F31.81 Bipolar II disorder (principal) | CPT/HCPCS: G0463 ==

== ENCOUNTER 2017-11-24 16:47 | Emergency (ER) | payer BC, MEDICARE ==
[2006-11-29 01:49] VITALS: BP 163/71
[~2017-11-24] VITALS: Ht 162.6 cm; Wt 98.6 kg
[2017-11-24 16:49] VITALS: TEMP 98.4
[2017-11-24 18:45] VITALS: BP 166/71; PULSE 95
== END 2017-11-24 18:46 | disposition home or self-care (01) ==
LOC: COL.ER 16:47
DX: G43.909 Migraine, unspecified, not intractable, without status migrainosus (principal); I10 Essential (primary) hypertension; F41.9 Anxiety disorder, unspecified; Z90.710 Acquired absence of both cervix and uterus; Z98.51 Tubal ligation status; Z90.89 Acquired absence of other organs
CPT/HCPCS: J1200; J2060; J2405

== ENCOUNTER 2017-11-28 20:58 | Emergency (ER) | payer BC, MEDICARE ==
[2006-11-29 01:49] VITALS: BP 163/71
[~2017-11-28] VITALS: Ht 162.6 cm; Wt 98.6 kg
[2017-11-28 21:14] VITALS: TEMP 98.2
[2017-11-28] MEDS ORDERED: REMERON 15M15 MG/TA1 PO (23:00)
[2017-11-28 23:31] VITALS: BP 138/107
[2017-11-29 00:05] VITALS: PULSE 88
== END 2017-11-29 00:05 | disposition home or self-care (01) ==
LOC: COL.ER 20:58
DX: G43.909 Migraine, unspecified, not intractable, without status migrainosus (principal); J45.909 Unspecified asthma, uncomplicated; F31.9 Bipolar disorder, unspecified; I11.0 Hypertensive heart disease with heart failure; I50.9 Heart failure, unspecified; Z86.73 Personal history of transient ischemic attack (TIA), and cerebral infarction without residual deficits
CPT/HCPCS: J1170; J1200; J2405

== ENCOUNTER → 2017-12-19 | Outpatient (CLI) | payer BC, MEDICARE ==
[~2017-12-19] MED LIST changes: +REMERON 15M15 MG/TA1 PO
== END ==
LOC: BHSO 15:48
DX: F31.81 Bipolar II disorder (principal)
CPT/HCPCS: G0463

== ENCOUNTER 2017-12-28 16:56 | Emergency (ER) | payer BC, MEDICARE ==
[2006-11-29 01:49] VITALS: BP 163/71
[~2017-12-28] VITALS: Ht 162.6 cm; Wt 102.3 kg
[2017-12-28 16:58] VITALS: BP 131/78; TEMP 98.5
[2017-12-28] MEDS ORDERED: PRINIVIL20 MG PO (17:44)
[2017-12-28 18:38] VITALS: PULSE 79
== END 2017-12-28 18:38 | disposition home or self-care (01) ==
LOC: COL.ER 16:56
DX: G43.909 Migraine, unspecified, not intractable, without status migrainosus (principal); I10 Essential (primary) hypertension; J45.909 Unspecified asthma, uncomplicated; F31.9 Bipolar disorder, unspecified; Z86.73 Personal history of transient ischemic attack (TIA), and cerebral infarction without residual deficits
CPT/HCPCS: J1170; J1200; J2405

== ENCOUNTER 2018-01-26 23:52 | Emergency (ER) | payer BC, MEDICARE ==
[2006-11-29 01:49] VITALS: BP 163/71
[~2018-01-26] VITALS: Ht 162.6 cm; Wt 109.1 kg
[~2018-01-26 23:52] MED LIST changes: +PRINIVIL20 MG PO
[2018-01-26 23:57] VITALS: TEMP 98.7
[2018-01-27 01:19] VITALS: BP 143/79; PULSE 71
== END 2018-01-27 01:22 | disposition home or self-care (01) ==
LOC: COL.ER 23:52
DX: R51 Headache (principal)
CPT/HCPCS: J1170; J1630

== ENCOUNTER 2018-01-29 07:17 | Emergency (ER) | payer BC, MEDICARE ==
[2006-11-29 01:49] VITALS: BP 163/71
[~2018-01-29] VITALS: Ht 162.6 cm; Wt 109.1 kg
[2018-01-29 07:21] VITALS: TEMP 98.3
[2018-01-29 08:32] VITALS: BP 112/67; PULSE 74
== END 2018-01-29 08:36 | disposition home or self-care (01) ==
LOC: COL.ER 07:17
DX: G43.909 Migraine, unspecified, not intractable, without status migrainosus (principal); I10 Essential (primary) hypertension
CPT/HCPCS: J1170; J2060; J2405

== ENCOUNTER 2018-02-28 18:44 | Emergency (ER) | payer BC, MEDICARE ==
[2006-11-29 01:49] VITALS: BP 163/71
[~2018-02-28] VITALS: Ht 162.6 cm; Wt 109.1 kg
[2018-02-28 18:48] VITALS: BP 182/93; TEMP 98
[2018-02-28 20:50] VITALS: PULSE 75
== END 2018-02-28 20:50 | disposition home or self-care (01) ==
LOC: COL.ER 18:44
DX: G43.909 Migraine, unspecified, not intractable, without status migrainosus (principal); F31.9 Bipolar disorder, unspecified; I10 Essential (primary) hypertension
CPT/HCPCS: J1170; J1630; J1885; J2405

== ENCOUNTER 2018-03-16 14:34 | Emergency (ER) | payer BC, MEDICARE ==
[2006-11-29 01:49] VITALS: BP 163/71
[~2018-03-16] VITALS: Ht 162.6 cm; Wt 109.1 kg
[2018-03-16 14:55] VITALS: BP 178/91; TEMP 98.6
[2018-03-16 17:05] VITALS: PULSE 81
== END 2018-03-16 17:05 | disposition home or self-care (01) ==
LOC: COL.ER 14:34
DX: R51 Headache (principal); J45.909 Unspecified asthma, uncomplicated; F31.9 Bipolar disorder, unspecified; M79.7 Fibromyalgia; I10 Essential (primary) hypertension; I50.9 Heart failure, unspecified; Z86.69 Personal history of other diseases of the nervous system and sense organs
CPT/HCPCS: J1630; J2405

== ENCOUNTER → 2018-03-19 | Outpatient (CLI) | payer BC, MEDICARE | LOC: BHSO 14:10 | DX: F31.81 Bipolar II disorder (principal) | CPT/HCPCS: G0463 ==

== ENCOUNTER 2018-04-06 13:00 | Emergency (ER) | payer BC, MEDICARE ==
[2006-11-29 01:49] VITALS: BP 163/71
[~2018-04-06] VITALS: Ht 162.6 cm; Wt 109.1 kg
[2018-04-06 13:06] VITALS: TEMP 97.8
[2018-04-06] MEDS ORDERED: EXCEDRIN1 TAB PO (14:45)
[2018-04-06] MEDS ORDERED: ZOFRAN 4MG T4 MG/TAB PO (14:45)
[2018-04-06 15:58] VITALS: BP 142/73; PULSE 76
== END 2018-04-06 16:01 | disposition home or self-care (01) ==
LOC: COL.ER 13:00
DX: G43.909 Migraine, unspecified, not intractable, without status migrainosus (principal); I10 Essential (primary) hypertension; F31.9 Bipolar disorder, unspecified; Z90.49 Acquired absence of other specified parts of digestive tract; Z90.710 Acquired absence of both cervix and uterus; Z98.890 Other specified postprocedural states; Z86.73 Personal history of transient ischemic attack (TIA), and cerebral infarction without residual deficits
CPT/HCPCS: J1170; J1200; J2405

== ENCOUNTER 2018-04-27 19:58 | Emergency (ER) | payer BC, MEDICARE ==
[2006-11-29 01:49] VITALS: BP 163/71
[~2018-04-27] VITALS: Ht 162.6 cm; Wt 109.1 kg
[~2018-04-27 19:58] MED LIST changes: +EXCEDRIN1 TAB PO
[2018-04-27 20:10] VITALS: TEMP 98
[2018-04-27 21:07] VITALS: BP 99/57; PULSE 56
== END 2018-04-27 21:08 | disposition home or self-care (01) ==
LOC: COL.ER 19:58
DX: G43.909 Migraine, unspecified, not intractable, without status migrainosus (principal); I10 Essential (primary) hypertension
CPT/HCPCS: J1170; J1200; J2405

== ENCOUNTER 2018-05-16 16:58 | Emergency (ER) | payer BC, MEDICARE ==
[2006-11-29 01:49] VITALS: BP 163/71
[~2018-05-16] VITALS: Ht 162.6 cm; Wt 109.1 kg
[2018-05-16 17:05] VITALS: TEMP 97.9
[2018-05-16 17:32] LABS: BASO # 0.1 (0.0-0.2); BASO % 0.7 % (0.0-2.0); EOS # 0.2 (0.0-0.7); EOS % 1.8 % (0-4.0); GRAN # 7.7 (1.4-6.5); HEMATOCRIT 47.8 % (37.0-47.0); HEMOGLOBIN 15.8 g/dl (12.5-16.0); LYMPH # 2.3 (1.2-3.4); LYMPH % 21.2 % (20.0-51.0); MEAN CELL VOLUME 83 fl (80.0-100.0); MEAN CORPUSCULAR HEMOGLOBIN 27 pg (27.0-31.0); MEAN CORPUSCULAR HGB CONC 33 g/dl (33.0-37.0); MEAN PLATELET VOLUME 8.3 fl (7.4-10.4); MONO # 0.6 (0.1-0.6); MONO % 5.1 % (1.7-9.3); PLATELET COUNT 326 K/mm3 (130-400); RED BLOOD COUNT 5.79 M/mm3 (4.10-5.30); REDCELL DISTRIBUTION WIDTH-CV 12.9 % (11.5-14.5)
[2018-05-16 17:39] LABS: PROTHROMBIN TIME 10.8 SECONDS (9.7-12.8)
[2018-05-16 17:42] LABS: PARTIAL THROMBOPLASTIN TIME 36.6 SECONDS (26.0-37.0)
[2018-05-16 17:48] LABS: ALANINE AMINOTRANSFERASE 8 U/L (9-52); ALBUMIN 4.4 gm/dL (3.5-5.0); ALKALINE PHOSPHATASE 133 U/L (50-136); ANION GAP 11 mmol/L (7-16); AST,SGOT 32 U/L (15-37); BILIRUBIN,TOTAL 0.5 mg/dL (0.0-1.0); BLOOD UREA NITROGEN 19 mg/dL (7-17); CALCIUM 10.5 mg/dL (8.4-10.2); CARBON DIOXIDE 21 mmol/L (22-30); CHLORIDE 107 mmol/L (98-107); CREATININE, serum 0.77 (0.52-1.25); GLUCOSE 121 mg/dL (74-106); POTASSIUM 3.9 mmol/L (3.4-5.0); SODIUM 140 mmol/L (137-145); TOTAL PROTEIN 7.9 gm/dL (6.4-8.2)
[2018-05-16 17:58] LABS: C-REACTIVE PROTEIN < 0.5 mg/dL (0.0-0.9); TROPONIN-I < 0.012 ng/mL (0.000-0.035)
[2018-05-16] MEDS ORDERED: PRINZIDE 12.5 M1 TAB PO (18:39)
[2018-05-16] MEDS ORDERED: VISTARIL100 MG PO (18:40)
[2018-05-16] MEDS ORDERED: MYRBETR50MG PO (18:40)
[2018-05-16 20:27] VITALS: BP 118/80; PULSE 85
== END 2018-05-16 20:43 | disposition short-term general hospital (02) ==
LOC: COL.ER 16:58
PROVIDERS: Emergency Medicine
DX: I24.9 Acute ischemic heart disease, unspecified (principal); R51 Headache; I10 Essential (primary) hypertension; Z90.49 Acquired absence of other specified parts of digestive tract; F32.9 Major depressive disorder, single episode, unspecified
CPT/HCPCS: J2270; J2405; J7030

== ENCOUNTER 2018-05-27 12:15 | Emergency (ER) | payer BC, MEDICARE ==
[2006-11-29 01:49] VITALS: BP 163/71
[~2018-05-27] VITALS: Ht 162.6 cm; Wt 115.9 kg
[~2018-05-27 12:15] MED LIST changes: +MYRBETR50MG PO; +PRINZIDE 12.5 M1 TAB PO; +VISTARIL100 MG PO
[2018-05-27 12:23] VITALS: TEMP 97.6
[2018-05-27 13:51] VITALS: BP 133/82; PULSE 69
[2018-05-27] MEDS ORDERED: CARDIZEM CD 18180 MG PO (13:51)
== END 2018-05-27 13:52 | disposition home or self-care (01) ==
LOC: COL.ER 12:15
DX: G43.909 Migraine, unspecified, not intractable, without status migrainosus (principal); Z79.82 Long term (current) use of aspirin
CPT/HCPCS: J1170; J2405

== ENCOUNTER → 2018-06-19 | Outpatient (CLI) | payer BC, MEDICARE ==
[~2018-06-19] MED LIST changes: +CARDIZEM CD 18180 MG PO
== END ==
LOC: BHSO 15:03
DX: F31.81 Bipolar II disorder (principal)
CPT/HCPCS: G0463

== ENCOUNTER 2018-06-22 20:32 | Emergency (ER) | payer BC, MEDICARE ==
[2006-11-29 01:49] VITALS: BP 163/71
[~2018-06-22] VITALS: Ht 162.6 cm; Wt 109.1 kg
[2018-06-22 20:43] VITALS: TEMP 97.1
[2018-06-22 21:50] VITALS: BP 147/88; PULSE 107
== END 2018-06-22 21:50 | disposition home or self-care (01) ==
LOC: COL.ER 20:32
DX: G43.909 Migraine, unspecified, not intractable, without status migrainosus (principal)
CPT/HCPCS: J1170; J2550; J3410

== ENCOUNTER 2018-06-28 19:23 | Inpatient (IN) | payer BC, MEDICARE ==
[~2018-06-28] VITALS: Ht 162.6 cm; Wt 118.2 kg
[2018-06-28] VITALS: BP 104/52; PULSE 63; TEMP 97.6
[2018-06-28] MEDS ORDERED: RESTORIL 77.5 MG/CAP PO (20:09)
[2018-06-28 20:24] LABS: BASO # 0.1 (0.0-0.2); BASO % 0.9 % (0.0-2.0); EOS # 0.3 (0.0-0.7); EOS % 3.9 % (0-4.0); GRAN # 5.5 (1.4-6.5); GRAN % 71.3 % (42.2-75.2); HEMATOCRIT 40.4 % (37.0-47.0); HEMOGLOBIN 13.9 g/dl (12.5-16.0); LYMPH # 1.3 (1.2-3.4); LYMPH % 16.9 % (20.0-51.0); MEAN CELL VOLUME 81 fl (80.0-100.0); MEAN CORPUSCULAR HEMOGLOBIN 28 pg (27.0-31.0); MEAN CORPUSCULAR HGB CONC 34 g/dl (33.0-37.0); MEAN PLATELET VOLUME 8.5 fl (7.4-10.4); MONO # 0.5 (0.1-0.6); MONO % 6.7 % (1.7-9.3); PLATELET COUNT 258 K/mm3 (130-400); RED BLOOD COUNT 4.97 M/mm3 (4.10-5.30); REDCELL DISTRIBUTION WIDTH-CV 13.2 % (11.5-14.5)
[2018-06-28 20:37] LABS: ALBUMIN 3.7 gm/dL (3.5-5.0); BILIRUBIN,TOTAL 0.6 mg/dL (0.0-1.0); C-REACTIVE PROTEIN 1.4 mg/dL (0.0-0.9); CALCIUM 9.1 mg/dL (8.4-10.2); POTASSIUM 3.9 mmol/L (3.4-5.0); TOTAL PROTEIN 6.7 gm/dL (6.4-8.2)
[2018-06-28 20:39] LABS: CREATININE, serum 4.45 (0.52-1.25)
[2018-06-28] MEDS ORDERED: ATARAX50 MG PO (22:40)
[2018-06-28] MEDS ORDERED: ABILIFY 10MG TA10 MG PO (22:44)
[2018-06-28] MEDS ORDERED: LASIX 40MG TABL40 MG PO (22:46)
[2018-06-28 23:24] LABS: COLLECTION METHOD CLEAN CATCH
[2018-06-28 23:36] LABS: PH 6 (5-8); URINE APPEARANCE Clear; URINE BACTERIA Rare /hpf; URINE BILIRUBIN Negative (NEGATIVE); URINE BLOOD Negative (NEGATIVE); URINE COLOR Yellow; URINE GLUCOSE Negative (NEGATIVE); URINE KETONE Negative (NEGATIVE); URINE LEUKOCYTE ESTERASE Negative (NEGATIVE); URINE NITRATE Negative (NEGATIVE); URINE PROTEIN(semi-quant) Negative (NEGATIVE); URINE RBC 0-2 /hpf; URINE UROBILINOGEN Negative (NEGATIVE)
[2018-06-28 23:40] LABS: CREATININE, serum 4.03 (0.52-1.25)
[2018-06-28 23:52] LABS: FRACTIONAL EXCRETION OF NA+ 1.1 %
--- NOTE | 2018-06-29 03:32 | NUR ---
PT resting well in bed with personal items and call light within reach; No further assessed or verbalized concerns at time of rounds; PT able to communicate concerns well; Fluid continues to run as ordered; No further requests; Will continue to monitor. CDA
[2018-06-29 03:35] VITALS: BP 104/56; PULSE 60; TEMP 97.5
[2018-06-29 06:44] LABS: BASO # 0.1 (0.0-0.2); EOS # 0.2 (0.0-0.7); EOS % 4.7 % (0-4.0); GRAN # 3.1 (1.4-6.5); GRAN % 60.6 % (42.2-75.2); LYMPH # 1.3 (1.2-3.4); LYMPH % 24.5 % (20.0-51.0); MEAN CELL VOLUME 84 fl (80.0-100.0); MEAN CORPUSCULAR HGB CONC 33 g/dl (33.0-37.0); MEAN PLATELET VOLUME 8.8 fl (7.4-10.4); MONO # 0.5 (0.1-0.6); PLATELET COUNT 203 K/mm3 (130-400); RED BLOOD COUNT 4.32 M/mm3 (4.10-5.30); REDCELL DISTRIBUTION WIDTH-CV 13.2 % (11.5-14.5)
[2018-06-29 06:52] LABS: HEMATOCRIT 36.2 % (37.0-47.0); HEMOGLOBIN 11.9 g/dl (12.5-16.0); MEAN CORPUSCULAR HEMOGLOBIN 28 pg (27.0-31.0)
[2018-06-29 07:03] LABS: CREATININE, serum 3.51 (0.52-1.25); POTASSIUM 3.4 mmol/L (3.4-5.0)
--- NOTE | 2018-06-29 07:06 | NUR ---
Report given to LATA Rico; No significant changes or concerns at time of shift change. CDA
[2018-06-29 08:37] VITALS: BP 100/40; PULSE 65; TEMP 97.7
--- NOTE | 2018-06-29 09:15 | NUR ---
Pt resting in chair, C/O nausea early this morning but feeling better now. Mirgaine present C/O pain / and back pain present at 8. Requested her back pain medications, will follow up with provider. Complete morning assessment. Breathing even and unlabored, no shortness of breath. Breath sounds clear on auscultation. Alert and oriented. Denies any needs at this time.
[2018-06-29] MEDS ORDERED: NAPROXEN 3375 MG/TAB PO (09:21)
[2018-06-29 12:50] VITALS: BP 100/58; PULSE 61; TEMP 97.5
--- NOTE | 2018-06-29 14:22 | NUR ---
PATRICIA met with the patient and patient's , Guillermo, to discuss discharge plan. The patient lives in [place] with her . She reports independence with ADLs and has a cane. The patient's PCP is Dr. Candelario Blackmon and she receives her medications at [facility]. She reports no difficulties obtaining her meds. The patient's advanced directives are in EMR, but she provided PATRICIA with an updated DPOA-HC. PATRICIA placed a copy of the updated DPOA-HC in her chart. The patient plans to return home with her upon discharge. No additional needs at this time.
--- NOTE | 2018-06-29 15:24 | NUR ---
Pt in chair, denies any migraine pain at this time. Eating lunch with no nausea. Still C/O pain to her back, states it is chronic and she can handle it. Will continue to monitor.
[2018-06-29 16:25] VITALS: BP 108/42; PULSE 72; TEMP 97.6
--- NOTE | 2018-06-29 17:24 | NUR ---
Pt C/O pain to IV site. IV site flushes, no redness or swelling noted. Offered to change IV site, pt denied at this time and will wait to see if it continues to bother her. Pt requested to take more of her migraine medication due to increasing pain in head. Documented on emar, will continue to monitor.
--- NOTE | 2018-06-29 19:06 | NUR ---
Hand off report given to Alma GUIDO. Pt denies any needs at this time.
--- NOTE | 2018-06-29 19:38 | NUR ---
Resting in bed. Assessment complete. Lungs clear. Heart sounds normal. Bowels active x4. Pulses present throughout. Bilateral lower leg edema +1. IIV to right wrist infusing without complications. Reports 7/10 back pain. Will provide PRN dilaudid. Denies other needs at this time. Call light in reach.
[2018-06-29 19:51] VITALS: BP 115/62; PULSE 73; TEMP 97.8
[2018-06-29 23:10] VITALS: BP 111/50; PULSE 77; TEMP 97.7
--- NOTE | 2018-06-30 00:52 | NUR ---
Patient requested non-narcotic medication for migraines. Patient out of home axert 6.25mg. Per Dr. Ramos- fioricet PO x1 dose now. Provided to patient.
[2018-06-30 04:03] VITALS: BP 111/47; PULSE 91; TEMP 97.8
--- NOTE | 2018-06-30 05:49 | NUR ---
Patient required medication for migraine and back ache throughout night. Resting well in bed at this time. Denies needs. Call light in reach.
--- NOTE | 2018-06-30 06:55 | NUR ---
Report given to LATA Rico
[2018-06-30 07:22] LABS: CALCIUM 8.6 mg/dL (8.4-10.2); CREATININE, serum 1.86 (0.52-1.25); POTASSIUM 3.9 mmol/L (3.4-5.0)
--- NOTE | 2018-06-30 08:20 | NUR ---
Pt lying in bed awake, alert and oriented. Denies any nausea at this time, C/O of nausea last night with mirgraine. Denies shortness of breath, breathing even and unlabored. Completed morning assessment. Denies any migraine pain at this time. Will continue to monitor, call light in reach.
[2018-06-30 09:17] VITALS: BP 114/60; PULSE 88; TEMP 98.3
[2018-06-30 12:22] VITALS: BP 135/49; PULSE 85; TEMP 98.7
[2018-06-30 16:14] VITALS: BP 125/70; PULSE 77; TEMP 97.7
[2018-06-30 19:35] VITALS: BP 144/50; PULSE 87; TEMP 98.5
--- NOTE | 2018-06-30 22:24 | NUR ---
Resting in bed. Assessment complete. Lungs clear. Heart sounds normal. Bowels active x4. Pulses strong throughout. No edema noted. Reports back pain, does not want any medication at this time. INT to right wrist pulled out. Restarted in left forearm. Tolerated well. Denies needs at this time. Call light in reach.
--- NOTE | 2018-06-30 22:45 | NUR ---
Reports 8/10 migraine and back pain. Provided with PRN dilaudid. Will monitor.
[2018-06-30 23:45] VITALS: BP 133/53; PULSE 80; TEMP 97.7
--- NOTE | 2018-07-01 00:30 | NUR ---
Resting in bed. Denies needs. Call light in reach.
[2018-07-01 03:42] VITALS: BP 134/73; PULSE 85; TEMP 97.8
--- NOTE | 2018-07-01 06:12 | NUR ---
Patient had uneventful night. Up in shower this AM. Provided with PRN pain medication for migraine and back pain throughout night. Denies needs this AM.
--- NOTE | 2018-07-01 07:01 | NUR ---
Report given to LATA Sorto
[2018-07-01 07:43] VITALS: BP 141/85; PULSE 86; TEMP 98.1
[2018-07-01 07:48] LABS: CALCIUM 9.9 mg/dL (8.4-10.2); CREATININE, serum 1.23 (0.52-1.25); POTASSIUM 3.9 mmol/L (3.4-5.0)
--- NOTE | 2018-07-01 08:00 | NUR ---
Patient alert and oriented, answers questions appropriately. See assessment. No c/o at this time.
[2018-07-01] MEDS ORDERED: COREG 6.256.25 MG/TA PO (09:00)
--- NOTE | 2018-07-01 11:53 | NUR ---
Discharge instructions reviewed with patient and spouse, verbalized understanding. Discharged via wheelchair to auto/home with spouse at 1150.
== END 2018-07-01 11:50 | disposition home or self-care (01) | DRG 315 ==
LOC: COL.ER 19:23 → MEDICAL 22:29
PROVIDERS: Emergency Medicine; Nurse Practitioner Family; Physician Assistant; ADMIT Family Medicine
DX: I95.9 Hypotension, unspecified (principal); N17.9 Acute kidney failure, unspecified; Z68.41 Body mass index [BMI] 40.0-44.9, adult; E87.1 Hypo-osmolality and hyponatremia; I10 Essential (primary) hypertension; J45.909 Unspecified asthma, uncomplicated; K31.84 Gastroparesis; G43.909 Migraine, unspecified, not intractable, without status migrainosus; E66.9 Obesity, unspecified; T65.91XA Toxic effect of unspecified substance, accidental (unintentional), initial encounter; Y92.009 Unspecified place in unspecified non-institutional (private) residence as the place of occurrence of the external cause; M51.36 Other intervertebral disc degeneration, lumbar region; F31.9 Bipolar disorder, unspecified; E86.1 Hypovolemia; E87.6 Hypokalemia; G47.00 Insomnia, unspecified; G89.29 Other chronic pain; M54.9 Dorsalgia, unspecified; Z88.1 Allergy status to other antibiotic agents; Z88.2 Allergy status to sulfonamides; Z88.8 Allergy status to other drugs, medicaments and biological substances; Z88.9 Allergy status to unspecified drugs, medicaments and biological substances; Z85.41 Personal history of malignant neoplasm of cervix uteri; Z90.710 Acquired absence of both cervix and uterus
CPT/HCPCS: 99222-AI; 99232-AI; 99239; J1170; J1644; J1885; J2405; J2550; J7030; J7120

== ENCOUNTER 2018-07-11 18:03 | Emergency (ER) | payer BC, MEDICARE ==
[2006-11-29 01:49] VITALS: BP 163/71
[~2018-07-11] VITALS: Ht 162.6 cm; Wt 118.2 kg
[~2018-07-11 18:03] MED LIST changes: +ABILIFY 10MG TA10 MG PO; +COREG 6.256.25 MG/TA PO; +RESTORIL 77.5 MG/CAP PO
[2018-07-11 19:07] LABS: BASO # 0.1 (0.0-0.2); BASO % 0.9 % (0.0-2.0); EOS # 0.3 (0.0-0.7); EOS % 3.3 % (0-4.0); GRAN # 5.1 (1.4-6.5); GRAN % 65.7 % (42.2-75.2); HEMATOCRIT 44.5 % (37.0-47.0); HEMOGLOBIN 14.9 g/dl (12.5-16.0); LYMPH # 1.9 (1.2-3.4); MEAN CELL VOLUME 83 fl (80.0-100.0); MEAN CORPUSCULAR HEMOGLOBIN 28 pg (27.0-31.0); MEAN CORPUSCULAR HGB CONC 34 g/dl (33.0-37.0); MEAN PLATELET VOLUME 8.3 fl (7.4-10.4); MONO # 0.5 (0.1-0.6); MONO % 5.8 % (1.7-9.3); PLATELET COUNT 313 K/mm3 (130-400); RED BLOOD COUNT 5.36 M/mm3 (4.10-5.30); REDCELL DISTRIBUTION WIDTH-CV 13.4 % (11.5-14.5)
[2018-07-11 19:10] LABS: ALBUMIN 4.2 gm/dL (3.5-5.0); BILIRUBIN,TOTAL 0.5 mg/dL (0.0-1.0); CALCIUM 10.6 mg/dL (8.4-10.2); CREATININE, serum 0.95 (0.52-1.25); POTASSIUM 3.9 mmol/L (3.4-5.0); TOTAL PROTEIN 7.7 gm/dL (6.4-8.2)
[2018-07-11 19:32] VITALS: BP 142/99; TEMP 98.2
[2018-07-11 20:16] VITALS: PULSE 94
== END 2018-07-11 20:00 | disposition home or self-care (01) ==
LOC: COL.ER 18:03
PROVIDERS: Nurse Practitioner
DX: G43.909 Migraine, unspecified, not intractable, without status migrainosus (principal); I25.10 Atherosclerotic heart disease of native coronary artery without angina pectoris; I10 Essential (primary) hypertension; J45.909 Unspecified asthma, uncomplicated; F31.9 Bipolar disorder, unspecified
CPT/HCPCS: J1170; J2405; J3410

== ENCOUNTER → 2018-07-23 | Outpatient (CLI) | payer BC, MEDICARE | LOC: MC.RAD 14:57 | DX: Z12.31 Encounter for screening mammogram for malignant neoplasm of breast (principal) ==

== ENCOUNTER → 2018-07-27 | Outpatient (CLI) | payer BC, MEDICARE | LOC: MC.RAD 10:30 | DX: N63.24 Unspecified lump in the left breast, lower inner quadrant (principal); R92.2 Inconclusive mammogram | CPT/HCPCS: G0279 ==

== ENCOUNTER 2018-08-15 16:33 | Emergency (ER) | payer BC, MEDICARE ==
[2006-11-29 01:49] VITALS: BP 163/71
[~2018-08-15] VITALS: Ht 162.6 cm; Wt 118.2 kg
[2018-08-15 16:51] VITALS: BP 188/89; TEMP 97.9
[2018-08-15 19:55] VITALS: PULSE 72
== END 2018-08-15 19:55 | disposition home or self-care (01) ==
LOC: COL.ER 16:33
DX: G43.909 Migraine, unspecified, not intractable, without status migrainosus (principal)
CPT/HCPCS: J1170; J2550

== ENCOUNTER 2018-09-11 20:59 | Emergency (ER) | payer BC, MEDICARE ==
[2006-11-29 01:49] VITALS: BP 163/71
[~2018-09-11] VITALS: Ht 162.6 cm; Wt 71.4 kg
[2018-09-11 21:03] VITALS: TEMP 97.4
[2018-09-12 00:46] VITALS: BP 132/67; PULSE 60
== END 2018-09-12 00:46 | disposition home or self-care (01) ==
LOC: COL.ER 20:59
DX: G43.909 Migraine, unspecified, not intractable, without status migrainosus (principal); I10 Essential (primary) hypertension; K31.84 Gastroparesis; F31.9 Bipolar disorder, unspecified; Z90.49 Acquired absence of other specified parts of digestive tract; Z90.710 Acquired absence of both cervix and uterus
CPT/HCPCS: J1170; J1630; J1885; J2405; J2550; J7030

== ENCOUNTER 2018-10-12 20:25 | Emergency (ER) | payer BC, MEDICARE ==
[2006-11-29 01:49] VITALS: BP 163/71
[~2018-10-12] VITALS: Ht 162.6 cm; Wt 118.2 kg
[2018-10-12 20:45] VITALS: TEMP 98.5
[2018-10-12 23:27] VITALS: BP 125/84; PULSE 88
== END 2018-10-12 23:29 | disposition home or self-care (01) ==
LOC: COL.ER 20:25
DX: G43.909 Migraine, unspecified, not intractable, without status migrainosus (principal)
CPT/HCPCS: J1170; J2550

== ENCOUNTER → 2018-10-12 | Outpatient (CLI) | payer BC, MEDICARE | LOC: BHSO 15:18 | DX: F31.81 Bipolar II disorder (principal) | CPT/HCPCS: G0463 ==

== ENCOUNTER 2018-11-20 20:55 | Emergency (ER) | payer BC, MEDICARE ==
[2006-11-29 01:49] VITALS: BP 163/71
[~2018-11-20] VITALS: Ht 157.5 cm; Wt 118.2 kg
[2018-11-20 21:15] VITALS: BP 170/98; TEMP 98.9
[2018-11-21 00:59] VITALS: PULSE 96
== END 2018-11-21 00:59 | disposition home or self-care (01) ==
LOC: COL.ER 20:55
DX: G43.909 Migraine, unspecified, not intractable, without status migrainosus (principal); I25.10 Atherosclerotic heart disease of native coronary artery without angina pectoris; I50.9 Heart failure, unspecified; I10 Essential (primary) hypertension; J45.909 Unspecified asthma, uncomplicated; F31.9 Bipolar disorder, unspecified; Z86.73 Personal history of transient ischemic attack (TIA), and cerebral infarction without residual deficits
CPT/HCPCS: J1170; J2405; J3410

== ENCOUNTER 2018-12-22 03:36 | Emergency (ER) | payer BC, MEDICARE ==
[2006-11-29 01:49] VITALS: BP 163/71
[~2018-12-22] VITALS: Ht 162.6 cm; Wt 118.2 kg
[2018-12-22 03:43] VITALS: BP 169/97; TEMP 97.7
[2018-12-22 04:50] VITALS: PULSE 97
== END 2018-12-22 04:47 | disposition home or self-care (01) ==
LOC: COL.ER 03:36
DX: G43.909 Migraine, unspecified, not intractable, without status migrainosus (principal); F32.9 Major depressive disorder, single episode, unspecified; J45.909 Unspecified asthma, uncomplicated; I48.91 Unspecified atrial fibrillation; I10 Essential (primary) hypertension; Z90.710 Acquired absence of both cervix and uterus; Z98.51 Tubal ligation status; Z90.89 Acquired absence of other organs
CPT/HCPCS: J1170; J2405

== ENCOUNTER 2019-01-17 17:13 | Emergency (ER) | payer BC, MEDICARE ==
[2006-11-29 01:49] VITALS: BP 163/71
[~2019-01-17] VITALS: Ht 162.6 cm; Wt 118.2 kg
[2019-01-17 17:17] VITALS: TEMP 97.2
[2019-01-17 19:58] VITALS: BP 145/106; PULSE 100
== END 2019-01-17 20:03 | disposition home or self-care (01) ==
LOC: COL.ER 17:13
DX: G43.909 Migraine, unspecified, not intractable, without status migrainosus (principal); I50.9 Heart failure, unspecified; Z90.89 Acquired absence of other organs; Z90.710 Acquired absence of both cervix and uterus
CPT/HCPCS: J1170; J1630; J2550

== ENCOUNTER 2019-02-06 19:35 | Emergency (ER) | payer BC, MEDICARE ==
[2006-11-29 01:49] VITALS: BP 163/71
[~2019-02-06] VITALS: Ht 162.6 cm; Wt 118.2 kg
[2019-02-06] MEDS ORDERED: NORCO 325 MG-51 TAB PO (19:50)
[2019-02-06 20:45] VITALS: BP 132/80; PULSE 94; TEMP 98.4
== END 2019-02-06 20:54 | disposition home or self-care (01) ==
LOC: COL.ER 19:35
DX: G43.909 Migraine, unspecified, not intractable, without status migrainosus (principal); I11.0 Hypertensive heart disease with heart failure; I50.9 Heart failure, unspecified; I25.10 Atherosclerotic heart disease of native coronary artery without angina pectoris; J45.909 Unspecified asthma, uncomplicated; F31.9 Bipolar disorder, unspecified; M54.9 Dorsalgia, unspecified; G89.29 Other chronic pain; Z86.73 Personal history of transient ischemic attack (TIA), and cerebral infarction without residual deficits
CPT/HCPCS: J1170; J2405

== ENCOUNTER 2019-03-10 17:53 | Emergency (ER) | payer BC, MEDICARE ==
[2006-11-29 01:49] VITALS: BP 163/71
[~2019-03-10] VITALS: Ht 162.6 cm; Wt 118.2 kg
[2019-03-10 18:12] VITALS: BP 141/75; TEMP 98.1
[2019-03-10 20:44] VITALS: PULSE 84
== END 2019-03-10 20:45 | disposition home or self-care (01) ==
LOC: COL.ER 17:53
DX: G43.909 Migraine, unspecified, not intractable, without status migrainosus (principal)
CPT/HCPCS: J1170; J2550

== ENCOUNTER 2019-04-16 22:23 | Emergency (ER) | payer BC, MEDICARE ==
[2006-11-29 01:49] VITALS: BP 163/71
[~2019-04-16] VITALS: Ht 162.6 cm; Wt 118.2 kg
[2019-04-17 00:44] VITALS: BP 134/87; PULSE 97; TEMP 97.2
== END 2019-04-17 00:45 | disposition home or self-care (01) ==
LOC: COL.ER 22:23
DX: G43.909 Migraine, unspecified, not intractable, without status migrainosus (principal); J45.909 Unspecified asthma, uncomplicated; F31.9 Bipolar disorder, unspecified; I10 Essential (primary) hypertension; I50.9 Heart failure, unspecified; Z86.73 Personal history of transient ischemic attack (TIA), and cerebral infarction without residual deficits; Z90.89 Acquired absence of other organs
CPT/HCPCS: J1170; J2550

== ENCOUNTER 2019-05-20 22:10 | Emergency (ER) | payer BC, MEDICARE ==
[2006-11-29 01:49] VITALS: BP 163/71
[~2019-05-20] VITALS: Ht 10.2 cm; Wt 118.2 kg
[2019-05-20 22:24] VITALS: TEMP 98.6
[2019-05-21 00:02] VITALS: BP 125/81; PULSE 92
== END 2019-05-21 00:02 | disposition home or self-care (01) ==
LOC: COL.ER 22:10
DX: G43.909 Migraine, unspecified, not intractable, without status migrainosus (principal); I10 Essential (primary) hypertension; F31.9 Bipolar disorder, unspecified; Z79.899 Other long term (current) drug therapy; Z79.82 Long term (current) use of aspirin; Z79.891 Long term (current) use of opiate analgesic; G89.29 Other chronic pain; Z98.890 Other specified postprocedural states
CPT/HCPCS: J1170; J2405

== ENCOUNTER 2019-07-26 01:42 | Emergency (ER) | payer BC, MEDICARE ==
[2006-11-29 01:49] VITALS: BP 163/71
[~2019-07-26] VITALS: Ht 162.6 cm; Wt 118.2 kg
[2019-07-26 01:47] VITALS: BP 133/89; TEMP 97.8
[2019-07-26] MEDS ORDERED: COREG12.5 MG PO (01:51)
[2019-07-26] MEDS ORDERED: ZESTRIL 20MG TA20 MG PO (01:52)
[2019-07-26] MEDS ORDERED: MYRBETR50MG PO (01:54)
[2019-07-26] MEDS ORDERED: KLOR-CON SPRIN10 MEQ PO (01:54)
[2019-07-26] MEDS ORDERED: NORCO 325 MG-7.1 TAB PO (01:55)
[2019-07-26 02:51] VITALS: PULSE 109
== END 2019-07-26 02:51 | disposition home or self-care (01) ==
LOC: COL.ER 01:42
DX: G43.909 Migraine, unspecified, not intractable, without status migrainosus (principal); F31.9 Bipolar disorder, unspecified; I10 Essential (primary) hypertension; J45.909 Unspecified asthma, uncomplicated; Z90.49 Acquired absence of other specified parts of digestive tract; Z90.710 Acquired absence of both cervix and uterus

== ENCOUNTER 2019-09-01 19:21 | Emergency (ER) | payer BC, MEDICARE ==
[2006-11-29 01:49] VITALS: BP 163/71
[~2019-09-01] VITALS: Ht 162.6 cm; Wt 122.3 kg
[~2019-09-01 19:21] MED LIST changes: +COREG12.5 MG PO; +KLOR-CON SPRIN10 MEQ PO; +ZESTRIL 20MG TA20 MG PO
[2019-09-01 19:29] VITALS: TEMP 98.5
[2019-09-01 20:40] VITALS: BP 145/80; PULSE 88
== END 2019-09-01 20:40 | disposition home or self-care (01) ==
LOC: COL.ER 19:21
DX: G43.909 Migraine, unspecified, not intractable, without status migrainosus (principal); J45.909 Unspecified asthma, uncomplicated; I10 Essential (primary) hypertension; Z86.73 Personal history of transient ischemic attack (TIA), and cerebral infarction without residual deficits
CPT/HCPCS: J1170; J2405

== ENCOUNTER 2019-10-06 01:32 | Emergency (ER) | payer BC, MEDICARE ==
[2006-11-29 01:49] VITALS: BP 163/71
[~2019-10-06] VITALS: Ht 162.6 cm; Wt 118.2 kg
[2019-10-06 01:38] VITALS: TEMP 97.6
[2019-10-06 03:19] VITALS: BP 141/81; PULSE 88
== END 2019-10-06 03:19 | disposition home or self-care (01) ==
LOC: COL.ER 01:32
DX: R51 Headache (principal); I10 Essential (primary) hypertension; Z90.49 Acquired absence of other specified parts of digestive tract; Z90.710 Acquired absence of both cervix and uterus; Z86.73 Personal history of transient ischemic attack (TIA), and cerebral infarction without residual deficits; Z88.2 Allergy status to sulfonamides; Z88.1 Allergy status to other antibiotic agents
CPT/HCPCS: J1100; J1170; J1885

== ENCOUNTER 2019-11-12 18:32 | Emergency (ER) | payer BC, MEDICARE ==
[2006-11-29 01:49] VITALS: BP 163/71
[~2019-11-12] VITALS: Ht 162.6 cm; Wt 118.2 kg
[2019-11-12 18:47] VITALS: BP 165/99; TEMP 97.6
[2019-11-12 20:25] VITALS: PULSE 98
== END 2019-11-12 20:26 | disposition home or self-care (01) ==
LOC: COL.ER 18:32
DX: G43.909 Migraine, unspecified, not intractable, without status migrainosus (principal); I50.9 Heart failure, unspecified; F31.9 Bipolar disorder, unspecified; Z90.49 Acquired absence of other specified parts of digestive tract; Z90.710 Acquired absence of both cervix and uterus; Z88.2 Allergy status to sulfonamides; Z88.1 Allergy status to other antibiotic agents; Z88.8 Allergy status to other drugs, medicaments and biological substances
CPT/HCPCS: J1170; J1885; J2405

== ENCOUNTER 2019-12-12 19:33 | Emergency (ER) | payer BC, MEDICARE ==
[2006-11-29 01:49] VITALS: BP 163/71
[~2019-12-12] VITALS: Ht 162.6 cm; Wt 125.5 kg
[~2019-12-12 19:33] MED LIST changes: -VITAMIN D250 MCG PO
[2019-12-12 19:36] VITALS: TEMP 97.3
[2019-12-12] MEDS ORDERED: ALDACTONE 25MG25 M1 PO (19:47)
[2019-12-12] MEDS ORDERED: VITAMIN D250 MCG PO (19:50)
[2019-12-12 21:43] VITALS: BP 142/86; PULSE 97
== END 2019-12-12 21:44 | disposition home or self-care (01) ==
LOC: COL.ER 19:33
DX: G43.909 Migraine, unspecified, not intractable, without status migrainosus (principal); Z88.1 Allergy status to other antibiotic agents; Z88.2 Allergy status to sulfonamides; Z88.5 Allergy status to narcotic agent; Z88.6 Allergy status to analgesic agent; Z88.8 Allergy status to other drugs, medicaments and biological substances
CPT/HCPCS: J1170; J2405

== ENCOUNTER → 2019-12-12 | Outpatient (CLI) | payer BC, MEDICARE ==
[~2019-12-12] MED LIST changes: +VITAMIN D250 MCG PO
== END ==
LOC: BHSO 14:45
DX: F31.81 Bipolar II disorder (principal)
CPT/HCPCS: G0463

== ENCOUNTER 2020-01-17 19:16 | Emergency (ER) | payer BC, MEDICARE ==
[2006-11-29 01:49] VITALS: BP 163/71
[~2020-01-17] VITALS: Ht 162.6 cm; Wt 118.2 kg
[~2020-01-17 19:16] MED LIST changes: +VITAMIN D250 MCG PO
[2020-01-17 19:22] VITALS: TEMP 98.2
[2020-01-17 20:24] VITALS: BP 175/85; PULSE 98
== END 2020-01-17 20:26 | disposition home or self-care (01) ==
LOC: COL.ER 19:16
DX: G43.909 Migraine, unspecified, not intractable, without status migrainosus (principal); I25.10 Atherosclerotic heart disease of native coronary artery without angina pectoris; Z85.41 Personal history of malignant neoplasm of cervix uteri; Z86.73 Personal history of transient ischemic attack (TIA), and cerebral infarction without residual deficits; Z90.49 Acquired absence of other specified parts of digestive tract; Z90.710 Acquired absence of both cervix and uterus; Z88.1 Allergy status to other antibiotic agents; Z88.2 Allergy status to sulfonamides; Z88.5 Allergy status to narcotic agent; Z88.8 Allergy status to other drugs, medicaments and biological substances
CPT/HCPCS: J1170; J2550

== ENCOUNTER 2020-03-08 22:27 | Emergency (ER) | payer BC, MEDICARE ==
[2006-11-29 01:49] VITALS: BP 163/71
[~2020-03-08] VITALS: Ht 162.6 cm; Wt 118.2 kg
[2020-03-08 22:43] VITALS: TEMP 98.3
[2020-03-09 00:25] VITALS: BP 186/99; PULSE 91
== END 2020-03-09 00:32 | disposition home or self-care (01) ==
LOC: COL.ER 22:27
DX: G43.909 Migraine, unspecified, not intractable, without status migrainosus (principal); I10 Essential (primary) hypertension; G89.29 Other chronic pain; I48.91 Unspecified atrial fibrillation; Z90.710 Acquired absence of both cervix and uterus; Z85.41 Personal history of malignant neoplasm of cervix uteri; Z90.49 Acquired absence of other specified parts of digestive tract; Z86.73 Personal history of transient ischemic attack (TIA), and cerebral infarction without residual deficits; Z88.1 Allergy status to other antibiotic agents; Z88.2 Allergy status to sulfonamides; Z88.5 Allergy status to narcotic agent; Z88.6 Allergy status to analgesic agent; Z88.8 Allergy status to other drugs, medicaments and biological substances
CPT/HCPCS: J1630; J1885

== ENCOUNTER 2020-04-06 13:13 | Emergency (ER) | payer BC, MEDICARE ==
[2006-11-29 01:49] VITALS: BP 163/71
[~2020-04-06] VITALS: Ht 162.6 cm; Wt 122.7 kg
[2020-04-06 13:20] VITALS: BP 173/108; TEMP 99
[2020-04-06] MEDS ORDERED: NURTEC ODT75 MG PO (15:22)
[2020-04-06 15:34] VITALS: PULSE 105
[2020-05-12] MEDS ORDERED: PROTONIX 40MG T40 MG PO (09:36)
[2020-05-12] MEDS ORDERED: ASPIRIN 81M81 MG/TA2 PO (09:36)
[2020-05-13] MEDS ORDERED: BRILINTA90 MG PO (09:47)
[2020-05-13] MEDS ORDERED: LIPITOR 80MG80 MG PO (09:47)
[2020-05-13] MEDS ORDERED: LASIX 20MG TABL20 MG PO (09:49)
[2020-05-13] MEDS ORDERED: ZESTRIL40 MG PO (09:49)
[2020-11-16] MEDS ORDERED: PLAVIX 75MG TAB75 MG PO (09:17)
[2020-11-16] MEDS ORDERED: NORVASC 5MG5 MG/TAB PO (09:18)
[2020-11-16] MEDS ORDERED: WELLBUTRIN XL300 M1 PO (09:19)
[2020-11-16] MEDS ORDERED: ESTRACE2 MG PO (09:20)
[2020-11-16] MEDS ORDERED: PRINIVIL40 MG PO (09:20)
[2020-11-16] MEDS ORDERED: LASIX 20MG TABL20 MG PO (09:21)
[2020-11-16] MEDS ORDERED: MYRBETR50MG PO (09:22)
[2020-11-16] MEDS ORDERED: LIPITOR 80MG80 MG PO (09:25)
[2020-11-16] MEDS ORDERED: KLOR-CON SPRIN10 MEQ PO (09:26)
[2020-11-16] MEDS ORDERED: NURTEC ODT75 MG PO (09:27)
== END 2020-04-06 15:34 | disposition home or self-care (01) ==
LOC: COL.ER 13:13
DX: G43.709 Chronic migraine without aura, not intractable, without status migrainosus (principal); F31.9 Bipolar disorder, unspecified; I10 Essential (primary) hypertension; Z88.2 Allergy status to sulfonamides; Z88.8 Allergy status to other drugs, medicaments and biological substances; Z88.1 Allergy status to other antibiotic agents; Z86.73 Personal history of transient ischemic attack (TIA), and cerebral infarction without residual deficits
CPT/HCPCS: J1630; J2405

== ENCOUNTER 2020-05-14 13:55 | Emergency (ER) | payer BC, MEDICARE ==
[2006-11-29 01:49] VITALS: BP 163/71
[~2020-05-14] VITALS: Ht 162.6 cm; Wt 118.2 kg
[~2020-05-14 13:55] MED LIST changes: +BRILINTA90 MG PO; +LIPITOR 80MG80 MG PO; +NURTEC ODT75 MG PO; +PROTONIX 40MG T40 MG PO; +ZESTRIL40 MG PO
[2020-05-14 14:28] LABS: BASO # 0.1 (0.0-0.2); BASO % 0.7 % (0.0-2.0); EOS # 0.2 (0.0-0.7); EOS % 2.2 % (0-4.0); GRAN # 5.5 (1.4-6.5); GRAN % 73.3 % (42.2-75.2); LYMPH # 1.2 (1.2-3.4); LYMPH % 16.2 % (20.0-51.0); MEAN CELL VOLUME 85 fl (80.0-100.0); MEAN CORPUSCULAR HGB CONC 33 g/dl (33.0-37.0); MEAN PLATELET VOLUME 8.1 fl (7.4-10.4); MONO # 0.5 (0.1-0.6); MONO % 7.3 % (1.7-9.3); RED BLOOD COUNT 6.18 M/mm3 (4.10-5.30); REDCELL DISTRIBUTION WIDTH-CV 12.2 % (11.5-14.5)
[2020-05-14 14:43] LABS: HEMATOCRIT 52.3 % (37.0-47.0); MEAN CORPUSCULAR HEMOGLOBIN 28 pg (27.0-31.0); PLATELET COUNT 381 K/mm3 (130-400)
[2020-05-14 14:47] LABS: ALBUMIN 4.9 gm/dL (3.5-5.0); CALCIUM 10.8 mg/dL (8.4-10.2); CREATININE, serum 0.75 (0.52-1.25); POTASSIUM 3.9 mmol/L (3.4-5.0); TOTAL PROTEIN 9.6 gm/dL (6.4-8.2)
[2020-05-14 15:14] LABS: TROPONIN-I 0.433 ng/mL (0.000-0.035)
[2020-05-14 16:18] VITALS: TEMP 97.9
[2020-05-14] MEDS ORDERED: PLAVIX 75MG TAB75 MG PO (19:24)
[2020-05-14 19:25] VITALS: BP 129/87; PULSE 79
[2020-11-16] MEDS ORDERED: PLAVIX 75MG TAB75 MG PO (09:17)
[2020-11-16] MEDS ORDERED: NORVASC 5MG5 MG/TAB PO (09:18)
[2020-11-16] MEDS ORDERED: WELLBUTRIN XL300 M1 PO (09:19)
[2020-11-16] MEDS ORDERED: ESTRACE2 MG PO (09:20)
[2020-11-16] MEDS ORDERED: PRINIVIL40 MG PO (09:20)
[2020-11-16] MEDS ORDERED: LASIX 20MG TABL20 MG PO (09:21)
[2020-11-16] MEDS ORDERED: MYRBETR50MG PO (09:22)
[2020-11-16] MEDS ORDERED: LIPITOR 80MG80 MG PO (09:25)
[2020-11-16] MEDS ORDERED: KLOR-CON SPRIN10 MEQ PO (09:26)
[2020-11-16] MEDS ORDERED: NURTEC ODT75 MG PO (09:27)
== END 2020-05-14 19:25 | disposition home or self-care (01) ==
LOC: COL.ER 13:55
PROVIDERS: Nurse Practitioner
DX: R06.02 Shortness of breath (principal); I11.0 Hypertensive heart disease with heart failure; E78.5 Hyperlipidemia, unspecified; J45.909 Unspecified asthma, uncomplicated; Z95.9 Presence of cardiac and vascular implant and graft, unspecified; Z88.2 Allergy status to sulfonamides; Z88.8 Allergy status to other drugs, medicaments and biological substances; Z88.1 Allergy status to other antibiotic agents; Z79.82 Long term (current) use of aspirin; Z79.02 Long term (current) use of antithrombotics/antiplatelets
CPT/HCPCS: J1170; Q9967

== ENCOUNTER 2020-08-12 10:06 | Emergency (ER) | payer BC, MEDICARE ==
[~2020-08-12] VITALS: Ht 162.6 cm; Wt 124.5 kg
[~2020-08-12 10:06] MED LIST changes: +PLAVIX 75MG TAB75 MG PO
[2020-08-12 10:13] VITALS: TEMP 98.3
[2020-08-12 10:38] LABS: BASO # 0.1 (0.0-0.2); BASO % 1.2 % (0.0-2.0); EOS # 0.1 (0.0-0.7); EOS % 2.3 % (0-4.0); GRAN # 3.4 (1.4-6.5); GRAN % 66.4 % (42.2-75.2); HEMATOCRIT 43.1 % (37.0-47.0); HEMOGLOBIN 13.9 g/dl (12.5-16.0); LYMPH # 1.2 (1.2-3.4); LYMPH % 22.5 % (20.0-51.0); MEAN CELL VOLUME 86 fl (80.0-100.0); MEAN CORPUSCULAR HEMOGLOBIN 28 pg (27.0-31.0); MEAN CORPUSCULAR HGB CONC 32 g/dl (33.0-37.0); MEAN PLATELET VOLUME 8.1 fl (7.4-10.4); MONO # 0.4 (0.1-0.6); MONO % 7.4 % (1.7-9.3); PLATELET COUNT 262 K/mm3 (130-400); RED BLOOD COUNT 5.01 M/mm3 (4.10-5.30); REDCELL DISTRIBUTION WIDTH-CV 13.4 % (11.5-14.5)
[2020-08-12 10:47] LABS: ALANINE AMINOTRANSFERASE 17 U/L (4-34); ALKALINE PHOSPHATASE 134 U/L (50-136); ANION GAP 7 mmol/L (7-16); AST,SGOT 25 U/L (15-37); BILIRUBIN,TOTAL 0.5 mg/dL (0.0-1.0); BLOOD UREA NITROGEN 18 mg/dL (7-17); CALCIUM 10.1 mg/dL (8.4-10.2); CARBON DIOXIDE 25 mmol/L (22-30); CHLORIDE 102 mmol/L (98-107); CREATININE, serum 0.89 (0.52-1.25); GLUCOSE 100 mg/dL (74-106); POTASSIUM 4.2 mmol/L (3.4-5.0); SODIUM 134 mmol/L (137-145); TOTAL PROTEIN 7.4 gm/dL (6.4-8.2)
[2020-08-12] MEDS ORDERED: NITROSTAT0.4 MG/TAB SL (10:49)
[2020-08-12 11:00] LABS: TROPONIN-I < 0.012 ng/mL (0.000-0.035)
[2020-08-12 11:01] LABS: LIPASE 36 U/L (23-300)
[2020-08-12 14:27] VITALS: BP 148/75; PULSE 76
[2020-11-16] MEDS ORDERED: PLAVIX 75MG TAB75 MG PO (09:17)
[2020-11-16] MEDS ORDERED: NORVASC 5MG5 MG/TAB PO (09:18)
[2020-11-16] MEDS ORDERED: WELLBUTRIN XL300 M1 PO (09:19)
[2020-11-16] MEDS ORDERED: ESTRACE2 MG PO (09:20)
[2020-11-16] MEDS ORDERED: PRINIVIL40 MG PO (09:20)
[2020-11-16] MEDS ORDERED: LASIX 20MG TABL20 MG PO (09:21)
[2020-11-16] MEDS ORDERED: MYRBETR50MG PO (09:22)
[2020-11-16] MEDS ORDERED: LIPITOR 80MG80 MG PO (09:25)
[2020-11-16] MEDS ORDERED: KLOR-CON SPRIN10 MEQ PO (09:26)
[2020-11-16] MEDS ORDERED: NURTEC ODT75 MG PO (09:27)
== END 2020-08-12 14:27 | disposition home or self-care (01) ==
LOC: COL.ER 10:06
PROVIDERS: Nurse Practitioner Primary Care
DX: K21.9 Gastro-esophageal reflux disease without esophagitis (principal); I48.91 Unspecified atrial fibrillation; I50.9 Heart failure, unspecified; I11.0 Hypertensive heart disease with heart failure; F31.9 Bipolar disorder, unspecified; J45.909 Unspecified asthma, uncomplicated; G47.00 Insomnia, unspecified; G43.909 Migraine, unspecified, not intractable, without status migrainosus; Z79.02 Long term (current) use of antithrombotics/antiplatelets; Z79.82 Long term (current) use of aspirin; Z79.899 Other long term (current) drug therapy
CPT/HCPCS: J2270; J2550

== ENCOUNTER 2020-09-08 07:40 | Emergency (ER) | payer BC, MEDICARE ==
[~2020-09-08] VITALS: Ht 157.5 cm; Wt 124.5 kg
[~2020-09-08 07:40] MED LIST changes: +NITROSTAT0.4 MG/TAB SL
[2020-09-08 07:49] VITALS: TEMP 98.4
[2020-09-08 08:15] LABS: BASO # 0.1 (0.0-0.2); BASO % 0.9 % (0.0-2.0); EOS # 0.2 (0.0-0.7); EOS % 2.7 % (0-4.0); GRAN # 3.8 (1.4-6.5); GRAN % 64.4 % (42.2-75.2); HEMATOCRIT 43.5 % (37.0-47.0); HEMOGLOBIN 13.7 g/dl (12.5-16.0); LYMPH # 1.4 (1.2-3.4); LYMPH % 24.5 % (20.0-51.0); MEAN CELL VOLUME 88 fl (80.0-100.0); MEAN CORPUSCULAR HEMOGLOBIN 28 pg (27.0-31.0); MEAN CORPUSCULAR HGB CONC 32 g/dl (33.0-37.0); MEAN PLATELET VOLUME 7.9 fl (7.4-10.4); MONO # 0.4 (0.1-0.6); MONO % 7.2 % (1.7-9.3); PLATELET COUNT 287 K/mm3 (130-400); RED BLOOD COUNT 4.95 M/mm3 (4.10-5.30)
[2020-09-08 08:22] LABS: ALANINE AMINOTRANSFERASE 21 U/L (4-34); ALBUMIN 3.9 gm/dL (3.5-5.0); ALKALINE PHOSPHATASE 130 U/L (50-136); ANION GAP 5 mmol/L (7-16); AST,SGOT 22 U/L (15-37); BILIRUBIN,TOTAL 0.3 mg/dL (0.0-1.0); BLOOD UREA NITROGEN 17 mg/dL (7-17); CALCIUM 9.3 mg/dL (8.4-10.2); CARBON DIOXIDE 23 mmol/L (22-30); CHLORIDE 107 mmol/L (98-107); GLUCOSE 105 mg/dL (74-106); POTASSIUM 4.1 mmol/L (3.4-5.0); SODIUM 135 mmol/L (137-145); TOTAL PROTEIN 7.2 gm/dL (6.4-8.2)
[2020-09-08 08:33] LABS: TROPONIN-I < 0.012 ng/mL (0.000-0.035)
[2020-09-08] MEDS ORDERED: NORVASC 5MG5 MG/TAB PO (12:18)
[2020-09-08 12:37] VITALS: BP 147/65; PULSE 67
[2020-11-16] MEDS ORDERED: PLAVIX 75MG TAB75 MG PO (09:17)
[2020-11-16] MEDS ORDERED: NORVASC 5MG5 MG/TAB PO (09:18)
[2020-11-16] MEDS ORDERED: WELLBUTRIN XL300 M1 PO (09:19)
[2020-11-16] MEDS ORDERED: ESTRACE2 MG PO (09:20)
[2020-11-16] MEDS ORDERED: PRINIVIL40 MG PO (09:20)
[2020-11-16] MEDS ORDERED: LASIX 20MG TABL20 MG PO (09:21)
[2020-11-16] MEDS ORDERED: MYRBETR50MG PO (09:22)
[2020-11-16] MEDS ORDERED: LIPITOR 80MG80 MG PO (09:25)
[2020-11-16] MEDS ORDERED: KLOR-CON SPRIN10 MEQ PO (09:26)
[2020-11-16] MEDS ORDERED: NURTEC ODT75 MG PO (09:27)
== END 2020-09-08 12:37 | disposition home or self-care (01) ==
LOC: COL.ER 07:40
PROVIDERS: Personal Emergency Response Attendant
DX: K21.9 Gastro-esophageal reflux disease without esophagitis (principal); G89.29 Other chronic pain; I25.10 Atherosclerotic heart disease of native coronary artery without angina pectoris; I10 Essential (primary) hypertension; F31.9 Bipolar disorder, unspecified; I48.91 Unspecified atrial fibrillation; Z86.73 Personal history of transient ischemic attack (TIA), and cerebral infarction without residual deficits; Z79.899 Other long term (current) drug therapy; Z79.02 Long term (current) use of antithrombotics/antiplatelets; Z79.82 Long term (current) use of aspirin; Z79.1 Long term (current) use of non-steroidal anti-inflammatories (NSAID)
CPT/HCPCS: J2270; J2405

== ENCOUNTER 2020-11-19 12:51 | Outpatient (CLI) | payer BC, MEDICARE ==
[2006-11-29 01:49] VITALS: BP 163/71
[2020-11-19] VITALS (8 sets, daily range): BP systolic 92–161; BP diastolic 53–99; PULSE 83–93; TEMP 98.1
[~2020-11-19] VITALS: Ht 157.5 cm; Wt 134.7 kg
[~2020-11-19 12:51] MED LIST changes: +ESTRACE2 MG PO; +NORVASC 5MG5 MG/TAB PO; +PRINIVIL40 MG PO; +WELLBUTRIN XL300 M1 PO
--- NOTE | 2020-11-19 17:45 | NUR ---
Pt did well during her recovery. No new complaints. Pt is able to sit up and ambulate with cane to bathroom. gait was steady. I reviewed dc isntructions r/t myelogram. pt verbalized understanding. Pt is escorted to exit via wheelchair.
== END 2020-11-19 18:46 | disposition home or self-care (01) ==
LOC: COL.RAD 12:51
DX: M41.86 Other forms of scoliosis, lumbar region (principal); M51.36 Other intervertebral disc degeneration, lumbar region; M48.061 Spinal stenosis, lumbar region without neurogenic claudication
CPT/HCPCS: Q9965; Q9967

== ENCOUNTER 2021-01-12 19:56 | Emergency (ER) | payer BC, MEDICARE ==
[~2021-01-12] VITALS: Ht 162.6 cm; Wt 118.2 kg
[2021-01-12 20:13] VITALS: TEMP 97
[2021-01-13 00:30] VITALS: BP 128/92; PULSE 75
== END 2021-01-13 00:30 | disposition home or self-care (01) ==
LOC: COL.ER 19:56
DX: G43.909 Migraine, unspecified, not intractable, without status migrainosus (principal); I50.9 Heart failure, unspecified; I11.0 Hypertensive heart disease with heart failure; J45.909 Unspecified asthma, uncomplicated; I48.91 Unspecified atrial fibrillation; F31.9 Bipolar disorder, unspecified; Z79.82 Long term (current) use of aspirin; Z79.899 Other long term (current) drug therapy
CPT/HCPCS: J1100; J1790; J1885; J2550

== ENCOUNTER 2021-03-13 06:21 | Emergency (ER) | payer BC, MEDICARE ==
[2021-03-13] VITALS (106 sets, daily range): BP systolic 124; BP diastolic 79; PULSE 86; TEMP 98.1; O2SAT 94–98
[~2021-03-13] VITALS: Ht 162.6 cm; Wt 130.0 kg
[2021-03-13] MEDS ORDERED: NEURONTIN100 MG/CAP PO (06:37)
[2021-03-13 06:51] LABS: BASO # 0.1 K/mm3 (0.0-0.2); EOS # 0.2 K/mm3 (0.0-0.7); EOS % 2.7 % (0.0-4.0); GRAN # 4.8 K/mm3 (1.4-6.5); GRAN % 70.3 % (42.2-75.2); HEMOGLOBIN 14.1 g/dl (12.5-16.0); LYMPH # 1.3 K/mm3 (1.2-3.4); LYMPH % 19.4 % (20.0-51.0); MEAN CELL VOLUME 83 fl (80.0-100.0); MEAN CORPUSCULAR HEMOGLOBIN 27 pg (27-31); MEAN CORPUSCULAR HGB CONC 33 g/dl (33.0-37.0); MEAN PLATELET VOLUME 8.2 fl (7.4-10.4); MONO # 0.4 K/mm3 (0.1-0.6); MONO % 6.3 % (1.7-9.3); PLATELET COUNT 291 K/mm3 (130-400); REDCELL DISTRIBUTION WIDTH-CV 13.4 % (11.5-14.5)
[2021-03-13 07:06] LABS: ALANINE AMINOTRANSFERASE 13 U/L (0-55); ALBUMIN 3.8 gm/dL (3.4-4.8); ALKALINE PHOSPHATASE 131 U/L (40-150); ANION GAP 9 mmol/L (7-16); AST,SGOT 15 U/L (5-34); BILIRUBIN,TOTAL 0.6 mg/dL (0.2-1.2); BLOOD UREA NITROGEN 11 mg/dL (10-20); CALCIUM 9.7 mg/dL (8.4-10.2); CARBON DIOXIDE 22 mmol/L (23-31); CHLORIDE 107 mmol/L (98-107); CREATINE KINASE 44 U/L (29-168); CREATININE, serum 0.68 mg/dL (0.57-1.11); GLUCOSE 110 mg/dL (70-99); SODIUM 138 mmol/L (136-145); TOTAL PROTEIN 7.6 gm/dL (6.2-8.1)
[2021-03-13 07:13] LABS: TROPONIN-I < 0.010 ng/mL (0.00-0.033)
== END 2021-03-13 10:29 | disposition home or self-care (01) ==
LOC: COL.ER 06:21
PROVIDERS: Emergency Medicine
DX: R07.89 Other chest pain (principal); G43.909 Migraine, unspecified, not intractable, without status migrainosus; J45.909 Unspecified asthma, uncomplicated; F31.9 Bipolar disorder, unspecified; I48.91 Unspecified atrial fibrillation; I50.9 Heart failure, unspecified; I11.0 Hypertensive heart disease with heart failure; Z95.5 Presence of coronary angioplasty implant and graft; Z79.82 Long term (current) use of aspirin; Z79.899 Other long term (current) drug therapy
CPT/HCPCS: J2405

== ENCOUNTER → 2021-04-21 | Outpatient (CLI) | payer BC, MEDICARE ==
[~2021-04-21] MED LIST changes: +NEURONTIN100 MG/CAP PO
== END ==
LOC: MC.RAD 13:57
DX: Z12.31 Encounter for screening mammogram for malignant neoplasm of breast (principal); N64.4 Mastodynia

== ENCOUNTER 2021-09-02 13:09 | Inpatient (IN) | payer BC, MEDICARE ==
[2006-11-29 01:49] VITALS: BP 163/71
[~2021-09-02] VITALS: Ht 162.6 cm; Wt 134.9 kg
--- NOTE | 2021-09-02 13:30 | NUR ---
PATIENT ARRIVED TO UNIT VIA EMS FROM [place] IN STABLE CONDITION. PATIENT DENIES CHEST PAIN AT THIS TIME. COMPLAINING OF NAUSEA AND HEADACHE AT THIS TIME. DENIES BLURRED VISION. PATIENT STATES SHE HAS CHRONIC MIGRAINES THAT ARE USUALLY CONTROLLED BY MEDICATIONS. INDEPENDENT FROM HOME WITH USE OF CANE. LIVES WITH SPOUSE. TAKES MEDICATIONS WHOLE WITHOUT ISSUE. NO SKIN ISSUES. CONTINENT OF B/B. HOSPITALIST IN ROOM AT TIME OF ADMISSION. VITALS WNL.
[2021-09-02] MEDS ORDERED: NEURONTIN300 MG/CAP PO (15:14)
[2021-09-02] MEDS ORDERED: ZESTRIL 20MG TA20 MG PO (15:15)
[2021-09-02] MEDS ORDERED: CATAPRES 0.1MG0.1 MG PO (15:18)
[2021-09-02] MEDS ORDERED: NITROSTAT0.4 MG/TAB PO (15:19)
[2021-09-02] MEDS ORDERED: ATARAX50 MG PO (15:20)
[2021-09-02] MEDS ORDERED: FLEXERIL 1010 MG/TAB PO (15:22)
[2021-09-02] MEDS ORDERED: NORCO 325 MG-7.1 TAB PO (15:22)
[2021-09-02] MEDS ORDERED: DESYREL 100MG100 MG PO (15:23)
[2021-09-02 16:08] VITALS: BP 137/88; PULSE 80; TEMP 97.8
[2021-09-02 16:30] LABS: BASO # 0.1 K/mm3 (0.0-0.2); EOS % 0.7 % (0.0-4.0); GRAN # 3.7 K/mm3 (1.4-6.5); GRAN % 63.9 % (42.2-75.2); HEMOGLOBIN 16.3 g/dl (12.5-16.0); LYMPH # 1.5 K/mm3 (1.2-3.4); LYMPH % 26.5 % (20.0-51.0); MEAN CELL VOLUME 86 fl (80.0-100.0); MEAN CORPUSCULAR HEMOGLOBIN 28 pg (27-31); MEAN CORPUSCULAR HGB CONC 33 g/dl (33.0-37.0); MEAN PLATELET VOLUME 8.4 fl (7.4-10.4); MONO # 0.4 K/mm3 (0.1-0.6); MONO % 7.7 % (1.7-9.3); PLATELET COUNT 292 K/mm3 (130-400); RED BLOOD COUNT 5.73 M/mm3 (4.10-5.30); REDCELL DISTRIBUTION WIDTH-CV 13.2 % (11.5-14.5)
--- NOTE | 2021-09-02 16:57 | NUR ---
CONSULT PLACED TO DR GUZMAN COMPLETED.
[2021-09-02 17:01] LABS: TROPONIN-I 0.048 ng/mL (0.00-0.033)
[2021-09-02 17:32] LABS: ALBUMIN 3.8 gm/dL (3.4-4.8); BILIRUBIN,TOTAL 0.5 mg/dL (0.2-1.2); CALCIUM 10.5 mg/dL (8.4-10.2); CREATININE, serum 0.76 mg/dL (0.57-1.11); POTASSIUM 3.7 mmol/L (3.5-4.5); TOTAL PROTEIN 7.3 gm/dL (6.2-8.1)
[2021-09-02 20:09] VITALS: BP 152/70; PULSE 87; TEMP 97.8
--- NOTE | 2021-09-02 22:12 | NUR ---
Patient assessed around 2014. Complained of back pain and given scheduled medications as well as PRN Jean. Also complained of nausea, and stated that Phenergan helped more than Zofran at [place]. Called DENILSON Riley, new order for Phenergan received, and given per orders. Patient aware that she is NPO after midnight. Voices no questions, needs, or concerns at this time. In bed with call light within reach.
[2021-09-03] VITALS (515 sets, daily range): BP systolic 78–139; BP diastolic 42–78; PULSE 49–74; TEMP 96.5–97.8; O2SAT 77–100
--- NOTE | 2021-09-03 06:17 | NUR ---
IV fluids started per orders this morning. Denies pain and discomfort to chest this shift. Has been NPO since midnight. Voices no questions, needs, or concerns at this time. In bed with call light within reach.
[2021-09-03 07:31] LABS: BASO # 0.1 K/mm3 (0.0-0.2); EOS # 0.2 K/mm3 (0.0-0.7); EOS % 3.1 % (0.0-4.0); GRAN # 2.5 K/mm3 (1.4-6.5); GRAN % 51.8 % (42.2-75.2); HEMATOCRIT 48.3 % (37.0-47.0); HEMOGLOBIN 15.9 g/dl (12.5-16.0); LYMPH # 1.7 K/mm3 (1.2-3.4); LYMPH % 35.7 % (20.0-51.0); MEAN CELL VOLUME 87 fl (80.0-100.0); MEAN CORPUSCULAR HEMOGLOBIN 29 pg (27-31); MEAN CORPUSCULAR HGB CONC 33 g/dl (33.0-37.0); MONO # 0.4 K/mm3 (0.1-0.6); MONO % 8.2 % (1.7-9.3); PLATELET COUNT 309 K/mm3 (130-400); RED BLOOD COUNT 5.58 M/mm3 (4.10-5.30); REDCELL DISTRIBUTION WIDTH-CV 13.6 % (11.5-14.5)
[2021-09-03 07:33] LABS: BILIRUBIN,TOTAL 0.7 mg/dL (0.2-1.2); CALCIUM 10.8 mg/dL (8.4-10.2); CREATININE, serum 0.99 mg/dL (0.57-1.11); POTASSIUM 3.9 mmol/L (3.5-4.5); TOTAL PROTEIN 7.5 gm/dL (6.2-8.1)
[2021-09-03 07:53] LABS: THYROID STIMULATING HORMONE 2.229 uIU/mL (0.350-4.940)
--- NOTE | 2021-09-03 09:13 | NUR ---
Initial visit; Patient states and appears very worried about upcoming surgical procedure. Service Planner offered prayer where sheasked God to take away her worry and fear and trust in him. Service Planner prayed for a successful surgical procedure and rapid and thorough recovery. Service Planner reminded Gris that she gave her worry to God, now she has to work on not taking it back. Service Planner assured Gris she is well taken care of here and very much cared about. This seemed to help her not be as fearful.
--- NOTE | 2021-09-03 11:01 | NUR ---
See merge for all medication, assessment, intervention, and vital sign times.
--- NOTE | 2021-09-03 14:00 | NUR ---
PATIENT CAME FROM HEAD OF CYTOGENETICS AFTER HAVING 2 STENTS PLACED IN THE LAD. ACCESS WAS THROUGH RIGHT RADIAL AND PATIENT CAME BACK WITH 15ML IN TR BAND; SITE WAS SOFT WITH NO HEMATOMA AND NO BLEEDING. PATIENT TOLERATED PROCEDURE WELL AND IS CURRENTLY RESTING IN BED; VITAL SIGNS ARE WITHIN NORMAL LIMITS ALTHOUGH BLOOD PRESSURE HAS BEEN SLIGHTLY HYPOTENSIVE WITH SYSTOLIC PRESSURES IN THE 100S AND DIASTOLIC IN THE 50S.
--- NOTE | 2021-09-03 16:01 | NUR ---
RE:REFERRAL TO CARDIAC REHAB - REFERRAL WILL BE SENT TO [facility].
--- NOTE | 2021-09-03 19:30 | NUR ---
Received report from LATA Ortez. Patient resting quietly in bed. , Ross, at the bedside. All vitals within normal limits. She denies any pain or discomfort. TR band still in place to the right radial access site. Attempted to remove 3mL of air at this time but some light oozing noted to the site immediately; one mL of air replaced. Site is otherwise soft and without hematoma formation. Some faint bruising noted proximal to the TR band.
[2021-09-04] VITALS (580 sets, daily range): BP systolic 94–144; BP diastolic 50–90; PULSE 49–67; TEMP 97.5–98.2; O2SAT 51–100
[2021-09-04 06:59] LABS: BASO % 0.8 % (0.0-2.0); EOS # 0.2 K/mm3 (0.0-0.7); GRAN # 3.5 K/mm3 (1.4-6.5); GRAN % 69.9 % (42.2-75.2); HEMATOCRIT 41.2 % (37.0-47.0); LYMPH # 0.8 K/mm3 (1.2-3.4); MEAN CELL VOLUME 87 fl (80.0-100.0); MEAN CORPUSCULAR HEMOGLOBIN 28 pg (27-31); MEAN CORPUSCULAR HGB CONC 33 g/dl (33.0-37.0); MEAN PLATELET VOLUME 8.7 fl (7.4-10.4); MONO # 0.5 K/mm3 (0.1-0.6); MONO % 9.1 % (1.7-9.3); PLATELET COUNT 246 K/mm3 (130-400); RED BLOOD COUNT 4.76 M/mm3 (4.10-5.30); REDCELL DISTRIBUTION WIDTH-CV 13.4 % (11.5-14.5)
[2021-09-04 07:02] LABS: HEMOGLOBIN 13.4 g/dl (12.5-16.0)
[2021-09-04 07:16] LABS: CALCIUM 9.6 mg/dL (8.4-10.2); CREATININE, serum 0.79 mg/dL (0.57-1.11); POTASSIUM 4.5 mmol/L (3.5-4.5)
--- NOTE | 2021-09-04 07:50 | NUR ---
SHIFT REPORT RECEIVED FROM LATA SHARMA. PATIENT IS AWAKE AND EATING BREAKFAST IN BED. POSSIBILITY OF DISCHARGE TODAY. VSS, UP TO GO TO THE BEDSIDE COMMODE IN MOBILITY. CALL LIGHT WITHIN REACH. [address]
--- NOTE | 2021-09-04 09:21 | NUR ---
cinder worker met with patient to complete intake and discuss discharge plan. Patient lives at home with her Guillermo ([phone]) in [place], [place]. Patient reports that she is still able to complete her ADL's independently, but it is taking a lot longer because of a bad back. Patient utilizes a cane to assist with mobility. She has no home oxygen needs. PCP is and she utilizes [facility] for prescriptions. Patient reports that she does not have any home health services established at this time. She does report to having a [facility]- estbalished listing her Guillermo, her daughter Herlinda ([phone]) and her other daughter Ileana.
--- NOTE | 2021-09-04 10:30 | NUR ---
DR. RECINOS AT BEDSIDE. AGREEABLE TO DISCHARGE PATIENT HOME TODAY.
--- NOTE | 2021-09-04 10:34 | NUR ---
Follow-up visit; Patient requested to see Tower Technician, who had prayed with her prior to her surgical procedure. Patient doing wonderfully she says and wanted to share this with Tower Technician. Patient spoke of her blessings and the miracle that her experienced that she believes came through prayer. Tower Technician offered a prayer Thanking God for Gris and her 's many blessings.
[2021-09-04] MEDS ORDERED: BRILINTA90 MG PO (11:06)
--- NOTE | 2021-09-04 11:12 | NUR ---
DR. REGALADO AT BEDSIDE. DISCUSSED PLAN OF CARE AND AGREEABLE TO DISCHARGE.
== END 2021-09-04 14:08 | disposition home or self-care (01) | DRG 246 ==
LOC: ICU 13:09 → MEDICAL 13:09 → ICU 09-03 13:38
PROVIDERS: Physician Assistant; ADMIT Student in an Organized Health Care Education/Training Program
PROC: 027035Z Dilation of Coronary Artery, One Artery with Two Drug-eluting Intraluminal Devices, Percutaneous Approach (ICD-10-PCS; principal; 2021-09-03)
PROC: 4A023N7 Measurement of Cardiac Sampling and Pressure, Left Heart, Percutaneous Approach (ICD-10-PCS; 2021-09-03)
PROC: B2111ZZ Fluoroscopy of Multiple Coronary Arteries using Low Osmolar Contrast (ICD-10-PCS; 2021-09-03)
DX: T82.855A Stenosis of coronary artery stent, initial encounter (principal); I21.4 Non-ST elevation (NSTEMI) myocardial infarction; I25.110 Atherosclerotic heart disease of native coronary artery with unstable angina pectoris; L40.9 Psoriasis, unspecified; K31.84 Gastroparesis; G89.29 Other chronic pain; M54.9 Dorsalgia, unspecified; M79.7 Fibromyalgia; M41.9 Scoliosis, unspecified; G50.0 Trigeminal neuralgia; F41.9 Anxiety disorder, unspecified; I16.0 Hypertensive urgency; Y83.8 Other surgical procedures as the cause of abnormal reaction of the patient, or of later complication, without mention of misadventure at the time of the procedure; I48.91 Unspecified atrial fibrillation; K21.9 Gastro-esophageal reflux disease without esophagitis; Z98.51 Tubal ligation status; Z90.710 Acquired absence of both cervix and uterus; Z90.49 Acquired absence of other specified parts of digestive tract; Z90.89 Acquired absence of other organs; Z79.01 Long term (current) use of anticoagulants; Z95.5 Presence of coronary angioplasty implant and graft; Z79.82 Long term (current) use of aspirin; Z85.41 Personal history of malignant neoplasm of cervix uteri; Z86.73 Personal history of transient ischemic attack (TIA), and cerebral infarction without residual deficits; Z88.6 Allergy status to analgesic agent; Z88.1 Allergy status to other antibiotic agents; Z88.2 Allergy status to sulfonamides; Z88.8 Allergy status to other drugs, medicaments and biological substances; Z23 Encounter for immunization; Y92.89 Other specified places as the place of occurrence of the external cause
CPT/HCPCS: 99233-AI; C1769; C1874; C1887; C9600; J0583; J1644; J2550; J2704; J3010; Q9967

== ENCOUNTER 2021-09-21 18:18 | Observation (INO) | payer BC, MEDICARE ==
[~2021-09-21] VITALS: Ht 162.6 cm; Wt 132.8 kg
[~2021-09-21 18:18] MED LIST changes: +CATAPRES 0.1MG0.1 MG PO; +FLEXERIL 1010 MG/TAB PO; +NEURONTIN300 MG/CAP PO; +NITROSTAT0.4 MG/TAB PO
[2021-09-21 19:05] LABS: BASO # 0.1 K/mm3 (0.0-0.2); BASO % 0.7 % (0.0-2.0); EOS # 0.2 K/mm3 (0.0-0.7); EOS % 2.1 % (0.0-4.0); GRAN # 5.1 K/mm3 (1.4-6.5); GRAN % 70.7 % (42.2-75.2); HEMATOCRIT 41.9 % (37.0-47.0); HEMOGLOBIN 13.7 g/dl (12.5-16.0); LYMPH # 1.4 K/mm3 (1.2-3.4); LYMPH % 19.6 % (20.0-51.0); MEAN CELL VOLUME 86 fl (80.0-100.0); MEAN CORPUSCULAR HEMOGLOBIN 28 pg (27-31); MEAN CORPUSCULAR HGB CONC 33 g/dl (33.0-37.0); MEAN PLATELET VOLUME 8.3 fl (7.4-10.4); MONO # 0.5 K/mm3 (0.1-0.6); MONO % 6.6 % (1.7-9.3); PLATELET COUNT 421 K/mm3 (130-400); RED BLOOD COUNT 4.86 M/mm3 (4.10-5.30); REDCELL DISTRIBUTION WIDTH-CV 13.1 % (11.5-14.5)
[2021-09-21 19:17] LABS: ALBUMIN 3.3 gm/dL (3.4-4.8); BILIRUBIN,TOTAL 0.3 mg/dL (0.2-1.2); CALCIUM 10.3 mg/dL (8.4-10.2); CREATININE, serum 0.74 mg/dL (0.57-1.11); TOTAL PROTEIN 7.1 gm/dL (6.2-8.1)
[2021-09-21 19:25] LABS: TROPONIN-I 0.035 ng/mL (0.00-0.033)
[2021-09-21 19:36] LABS: C-REACTIVE PROTEIN 2.47 mg/dL (0.00-0.50)
[2021-09-22] VITALS (7 sets, daily range): BP systolic 98–144; BP diastolic 35–63; PULSE 68–98; TEMP 97.5–98.1
[2021-09-22] MEDS ORDERED: PLAVIX 75MG TAB75 MG PO (00:02)
[2021-09-22] MEDS ORDERED: NYAMYC100000 U/G TP (00:04)
[2021-09-22] MEDS ORDERED: PROVENTIL0.09 MG/A1 IH (00:05)
[2021-09-22] MEDS ORDERED: TEGRETOL 2200 MG/TA1 PO (00:06)
[2021-09-22 00:07] LABS: PARTIAL THROMBOPLASTIN TIME 200.6 SECONDS (26.0-37.0)
[2021-09-22] MEDS ORDERED: ESTRACE0.1 MG/GM VG (00:07)
--- NOTE | 2021-09-22 00:55 | NUR ---
PATIENT ARRIVED ON UNIT AT 2345. PATIENT AMBULATED TO BED WITH STAND BY ASSIST ONLY. PATIENT RESTING IN BED WITH SUNGLASSES ON AND DENIES PAIN, NEEDS OR CONCERNS AT THIS TIME. PATIENT ORIENTED TO ROOM. PATIENT ASSESSMENT COMPLETED. CALL LIGHT WITHIN PATIENT REACH.
--- NOTE | 2021-09-22 05:47 | NUR ---
PATIENT RESTING IN BED DENYING ANY CONCERNS OR PAIN AT THIS TIME. PATIENT STATES SHE QUIT TAKING HER TRAZADONE DUE TO ITCHING. PATIENT WOULD LIKE TO TRY DURING THE DAY TIME TO SEE IF SHE COULD TAKE IT AGAIN. THIS NURSE PROVIDED PATIENT EDUCATION ON TRAZADONE. PATIENT CONTINUES ON HEPRIN DRIP. CALL LIGHT IS WITHIN REACH OF PATIENT.
[2021-09-22 06:42] LABS: CALCIUM 9.5 mg/dL (8.4-10.2); CREATININE, serum 0.66 mg/dL (0.57-1.11); POTASSIUM 3.9 mmol/L (3.5-4.5)
[2021-09-22 06:57] LABS: TROPONIN-I 0.035 ng/mL (0.00-0.033)
--- NOTE | 2021-09-22 07:38 | NUR ---
Critical value of Troponin I reported to BHARGAV Espinosa, who read back the value.
--- NOTE | 2021-09-22 08:00 | NUR ---
Pt lying down in bed. Shift assessment completed. VSS. A&Ox4 . Pt feels pain on her shoulder. Pt remains NPO for possible cardiac intervention. Right Forearm INT CDI, no redness or edema. Left peripheral line in place fluids running on. CDI, no redness or edema. Pt requests to talk with OT or PT to ask about her pain in her shoulder. Pt placed in fall risk precautions. Call light within reach.
--- NOTE | 2021-09-22 09:31 | NUR ---
Environmental Marketer met with patient to discuss discharge planning. Patient lives in [place], [place] with her , Guillermo (ph#[phone]) and sees Dr. Blackmon for primary care. Patient obtains medications from [facility] in [place] and reports no difficulties affording her medications. Patient states she has good health insurance through her 's employer. Patient also reports that she is disabled. Patient uses a cane for ambulation and reports she is independent with ADLS, however completes them slowly. Patient has Advance Directives in EMR which designate her Guillermo and two daughters, Aminata Moreau and Brooke Mann as DPOA-HC. Patient plans to return home at time of discharge. SW spoke with BHARGAV Espinosa about PT/OT orders. Discharge Plan: Home
--- NOTE | 2021-09-22 10:00 | NUR ---
Shift assessment performed. Scheduled medications given. VSS. Patient alert and partially oriented. Extensive bruising note on patient's upper and lower extremities. Patient states that she has mild discomfort on BLE with touched. Patient currently on RA. Denies any further pain, discomfort, at this time. Patient taken out of isolation precautions and placed in room 357. Daughter updated on patient's POC.
--- NOTE | 2021-09-22 10:30 | NUR ---
PRN morphine given to patient for reported 8/10 migraine and pressure behind right eye. Neuro assessment performed and is WNL. Stimulation decreased in room. PRN zofran given.
--- NOTE | 2021-09-22 12:54 | NUR ---
RE: CARDIAC REHAB - Patient was scheduled for initial eval today for cardiac rehab. Staff discussed rescheduling - patient to call staff post discharge to reschedule intake. Patient verbalized understanding. Approx. 5 minutes spent with patient.
--- NOTE | 2021-09-22 15:22 | NUR ---
Heparin gtt dcd per orders.
--- NOTE | 2021-09-22 18:34 | NUR ---
Pt lying down in bed requests pain medication for her back, scored at 8/10. Reported to charge nurse. Right forearm INT discontinued due to redness in skin. Left AC INT, some bleeding, remains in place. Fall precautions remain in place. Call light within reach.
[2021-09-23 03:29] VITALS: BP 111/53; PULSE 71; TEMP 97.5
--- NOTE | 2021-09-23 08:05 | NUR ---
Pt lying down in bed. Shift assessment completed. A&O x4. Pt requests to ambulate with PT, OT after breakfast. Back pain still present. Pt states that she would like to take her oral pain med along with gabapentin because she expresses that the pain med alone makes her feel itchy all over her body. Left AC INT, some bleeing, no redness or edema. Telemetry on. Call light within reach.
[2021-09-23 08:10] VITALS: BP 104/40; PULSE 71; TEMP 97.7
[2021-09-23 11:57] VITALS: BP 106/41; PULSE 64; TEMP 98.1
[2021-09-23] MEDS ORDERED: NORVASC 10MG10 MG PO (12:40)
--- NOTE | 2021-09-23 15:16 | NUR ---
Discharge education completed. All questions answered. Patient escorted via wheelchair by [facility] Staff. transporting home.
== END 2021-09-23 14:30 | disposition home or self-care (01) ==
LOC: COL.ER 18:18 → MEDICAL 20:06
PROVIDERS: Nurse Practitioner; Student in an Organized Health Care Education/Training Program; ADMIT Internal Medicine
DX: R07.9 Chest pain, unspecified (principal); R77.8 Other specified abnormalities of plasma proteins; I25.10 Atherosclerotic heart disease of native coronary artery without angina pectoris; I25.2 Old myocardial infarction; I10 Essential (primary) hypertension; R51.9 Headache, unspecified; Z20.822 Contact with and (suspected) exposure to COVID-19; M79.7 Fibromyalgia; G89.29 Other chronic pain; M54.9 Dorsalgia, unspecified; F31.9 Bipolar disorder, unspecified; Z79.82 Long term (current) use of aspirin; Z79.899 Other long term (current) drug therapy; Z79.02 Long term (current) use of antithrombotics/antiplatelets; Z86.73 Personal history of transient ischemic attack (TIA), and cerebral infarction without residual deficits; Z95.5 Presence of coronary angioplasty implant and graft; Z85.41 Personal history of malignant neoplasm of cervix uteri
CPT/HCPCS: 99222-AI; 99232-AI; 99239; G0378; J1644; J2270; J2405